=== PATIENT | female | born 1995 | race Caucasian/White ===

== ENCOUNTER 2020-07-14 09:52 | Outpatient (REF) | payer OTHER, SELFPAY ==
[2020-07-15 08:13] LABS: HBc Num1 0.19 S/CO (0.00-0.79); HIV AB/AG Nonreactive (Nonreactive); HIV Num 1 0.05 S/CO (0.00-0.99); Hepatitis B Core Antibody Nonreactive (Nonreactive)
[2020-07-15 08:38] LABS: ~HepC Num1 0.08 S/CO (0.00-0.79); ~Hepatitis C Antibody Nonreactive (Nonreactive)
[2020-07-15 09:05] LABS: Syphilis Screen Nonreactive (Nonreactive)
[2020-07-15 12:05] LABS: CT PCR NOT DETECTED (Not Detect.); NG PCR NOT DETECTED (Not Detect.)
== END 2020-07-14 09:53 | disposition home or self-care (01) ==
LOC: HO.LAB 09:52
PROVIDERS: PCP Internal Medicine; Visit Provider Advanced Practice Midwife
DX: Z01.419 Encounter for gynecological examination (general) (routine) without abnormal findings (principal); Z11.3 Encounter for screening for infections with a predominantly sexual mode of transmission; Z11.4 Encounter for screening for human immunodeficiency virus [HIV]; Z01.84 Encounter for antibody response examination; Z20.2 Contact with and (suspected) exposure to infections with a predominantly sexual mode of transmission
CPT/HCPCS: 36415; 86704; 86780; 86803; 87389; 87491; 87591; 88142

== ENCOUNTER 2020-07-29 20:32 | Emergency (ER) | payer OTHER, SELFPAY ==
[2020-07-29 21:11] VITALS: BP 135/82; PULSE 84; RESP 16; TEMP 36.9; O2SAT 100; BMI 23.0
--- NOTE | 2020-07-29 21:14 | ECG_ITS ---
Test Reason : CP Blood Pressure : / mmHG Vent. Rate : 077 BPM Atrial Rate : 077 BPM P-R Int : 200 ms QRS Dur : 086 ms QT Int : 352 ms P-R-T Axes : 044 082 057 degrees QTc Int : 398 ms Normal sinus rhythm with sinus arrhythmia Normal ECG No previous ECGs available Referred By: Generic ED Physician Electronically Signed By:Jarrett Greene
[2020-07-29 22:44] LABS: Appearance Urine HAZY; Color Urine YELLOW; Glucose Urine UA NEG (NEG); Leukocyte Esterase Urine TRACE (NEG); Nitrite Urine NEG (NEG); UACC Culture Trigger YES; Urine Blood 3+ (NEG); Urine Ketones NEG (NEG); Urine Protein NEG (NEG-TRACE)
[2020-07-29 22:52] LABS: RBC Urine 30-49 /HPF (0); Squamous Epithelial Cell Urine 1+ /LPF
[2020-07-29 22:53] LABS: Bacteria Urine 2+ /LPF
[2020-07-29 22:59] LABS: UPreg QC Valid YES; Urine Pregnancy NEGATIVE (NEGATIVE)
--- NOTE | 2020-07-29 23:52 | ED_ITS ---
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 at the left anterior chest, nonradiating at approximately 1:00 p.m. this afternoon. This was not associated with any headache, dizziness, diaphoresis, shortness of breath, but patient reports palpitations approximately 2 hours after the sensation resolved and patient states that her symptoms were associated with tremulousness and denies any history of anxiety. No recent history of long car rides or plane trips, hemoptysis, estrogen supplementation, personal history of cancer, recent surgery or bed bound state, calf pain or calf swelling. Related Data Previous Rx's Medication Instructions Recorded vitamin with calcium 1 tab PO DAILY #30 tab 07/14/20 no.72-iron 27 mg-folic acid 1 mg tablet Allergies Allergy/AdvReac Type Severity Reaction Status Date / Time diphenhydramine Allergy Severe Seizure Verified 07/14/20 10:01 [From Benadryl] activity Review of Systems Review of Systems: Pertinent positives and negatives as stated in HPI 10 point review of systems is otherwise negative. PMFSH Past Medical History Source: nursing notes reviewed Surgical History No pertinent past surgical history Family History Family History Father No problems noted. Mother Hypertension Maternal Grandmother Hypertension Diabetes Maternal Uncle Cancer Brother In good health Sister In good health Social History Social History Alcohol intake: never Advance Directives: No Sexual orientation: Straight/Heterosexual Gender identity: female Physical Exam Vital Signs: Vital Signs: Last Vital Signs Temp 98.5 F 07/29/20 21:11 Pulse 84 07/29/20 21:11 Resp 16 07/29/20 21:11 BP 135/82 07/29/20 21:11 Pulse Ox 100 07/29/20 21:11 Body Mass Index 23.0 VITAL SIGNS: Reviewed. GENERAL: Well developed, well nourished, in no acute distress. HEAD: Normocephalic/atraumatic EYES: PERRLA, EOMI OROPHARYNX: no oral lesions noted, posterior pharynx clear, moist mucosa NECK: Supple, no adenopathy LUNGS: Normal breath sounds. No adventitious sounds or accessory muscle use. SpO2<100> CARDIOVASCULAR: Regular rate and rhythm without noted murmurs ABDOMEN: Soft, non-tender, non-distended with bowel sounds, no CVA tenderness SKIN: Inspection of the skin reveals no rashes NEUROLOGIC: Alert and oriented x 4. Course Course Course Narrative: This is a 25-year-old female with history and clinical presentation suggestive of possible anxiety, muscle strain/costochondritis, acid reflux. No clinical suspicion for PE, pneumonia. Review of all investigations is significant for UTI. All results and findings were discussed with patient at bedside and she received initial antibiotics here in the emergency room. Low clinical suspicion for pyelonephritis and patient was discharged with remaining antibiotics. MDM - Chest Pain Lab Data Labs: Lab Results 07/29/20 07/29/20 Range/Units 22:40 22:52 Urine Color YELLOW Urine Appearance HAZY Urine pH 6.0 (5.0-8.0) Ur Specific [place] 1.020 (1.005-1.025) Urine Protein NEG (NEG-TRACE) MG/DL Urine Glucose (UA) NEG (NEG) MG/DL Urine Ketones NEG (NEG) MG/DL Urine Blood 3+ H (NEG) Urine Nitrite NEG (NEG) Ur Leukocyte Esterase TRACE H (NEG) Urine RBC 30-49 H (0) /HPF Urine WBC 5-9 H (0-4) /HPF Ur Squamous Epith Cells 1+ /LPF Urine Bacteria 2+ /LPF Urine Test NEGATIVE (NEGATIVE) ECG Data ECG #1: Attestation: I personally reviewed and interpreted this ECG as follows: Prior ECG tracings: not available for review Interpretation: Normal sinus rhythm, HR -77, no evidence of acute ischemia, TN/QRS/QTC are within normal limits. Discharge Plan Discharge Clinical Impression: Atypical chest pain, UTI (urinary tract infection) Patient Disposition: Home, Self-Care Instructions: Urinary Tract Infection in Women (ED) Additional Instructions: Return to the ER for any worsening of your symptoms. Prescriptions: No Action Vitamin Plus Low Iron 27 mg iron- 1 mg tablet 1 tab PO DAILY Qty: 30 RF: 11 Referrals: Chang Ceballos MD [Primary Care Provider] - 2 days Print Language: Croatian
[2020-07-30] VITALS: BP 120/78; PULSE 76; RESP 18; TEMP 36.8; O2SAT 99
[2020-07-30] MEDS: levoFLOXacin 500 MG TABLET PO (00:38)
== END 2020-07-30 01:30 | disposition home or self-care (01) ==
PROVIDERS: Emergency Provider Student in an Organized Health Care Education/Training Program; PCP Internal Medicine
DX: R07.89 Other chest pain (principal); N39.0 Urinary tract infection, site not specified
CPT/HCPCS: 81001; 81003; 81025; 87086; 93005; 99283; 99284

== ENCOUNTER 2020-08-10 18:08 | Outpatient (REF) | payer OTHER, SELFPAY | END 2020-08-10 18:09 | disposition home or self-care (01) | LOC: HO.LNP 18:08 | PROVIDERS: Visit Provider Internal Medicine | DX: R30.0 Dysuria (principal) | CPT/HCPCS: 87086 ==

== ENCOUNTER 2021-02-04 11:33 | Outpatient (REF) | payer OTHER, SELFPAY ==
[2021-02-04 11:46] LABS: MANUAL DIFF FLAG NO
[2021-02-04 11:56] LABS: Basophils Percent Auto 0.5 % (0-2); Eosinophils Absolute Auto 0.3 X10*3/uL (0.0-0.4); Eosinophils Percent Auto 3.7 % (0-4); Hematocrit 39.7 % (37.0-47.0); Hemoglobin 12.8 g/dl (12.0-16.0); Imm Gran Abs Auto 0.02 X10*3/uL (0.00-0.03); Imm Gran Pct Auto 0.2 % (0.0-0.4); Lymphocytes Absolute Auto 2.4 X10*3/uL (1.2-4.9); Lymphocytes Percent Auto 28.9 % (20-40); Mean Corpuscular HGB Conc 32.2 g/dl (31.0-35.0); Mean Corpuscular Hemoglobin 29.8 pg (27.0-33.0); Mean Corpuscular Volume 92.5 fL (80.0-98.0); Mean Platelet Volume 10.3 fL (9.4-12.3); Monocytes Absolute Auto 0.8 X10*3/uL (0.1-1.2); Monocytes Percent Auto 9.9 % (2-11); Neutrophils Absolute Auto 4.8 x10*3/uL (2.0-8.3); Neutrophils Percent Auto 56.8 % (45-73); Platelet Count 303 X10*3/uL (160-400); Red Blood Count 4.29 X10*6/uL (4.20-5.50); Red Cell Distribution Width 12.1 % (11.0-16.0); White Blood Count 8.4 X10*3/uL (4.8-10.8)
[2021-02-04 12:32] LABS: Alanine Aminotransferase 13 U/L (0-31); Albumin Level 4.6 g/dL (3.5-5.0); Alkaline Phosphatase 74 U/L (39-117); Anion Gap 12 (12-20); Aspartate Amino Transferase 16 U/L (5-31); Bilirubin Total 0.4 mg/dL (0.0-1.0); Blood Urea Nitrogen 16 mg/dL (9-16); C Reactive Protein 0.23 mg/dL (< or = 0.50); Calcium 10.2 mg/dL (8.4-10.2); Carbon Dioxide 26 mmol/L (22-29); Chloride 106 mmol/L (96-108); Cholesterol 166 mg/dL; Estimated Glomerular Filt Rate > 60; Glucose Random 90 mg/dL (60-115); Potassium 5.2 mmol/L (3.3-5.1); Sodium 139 mmol/L (135-145); Total Protein 7.5 g/dL (6.5-8.0)
[2021-02-04 12:44] LABS: Erythrocyte Sedimentation Rate 6 MM/HR (0-20)
[2021-02-04 12:53] LABS: TSH reflex Free T4 2.29 uIU/mL (0.32-4.0)
== END 2021-02-04 11:34 | disposition home or self-care (01) ==
LOC: HO.LAB 11:33
PROVIDERS: PCP Internal Medicine; Visit Provider Internal Medicine
DX: Z00.00 Encounter for general adult medical examination without abnormal findings (principal); R53.83 Other fatigue; R10.9 Unspecified abdominal pain
CPT/HCPCS: 36415; 80053; 82465; 84443; 85025; 85652; 86140

== ENCOUNTER 2022-07-26 08:24 | Outpatient (REF) | payer OTHER, SELFPAY ==
[2022-07-26 09:28] LABS: MANUAL DIFF FLAG NO
[2022-07-26 10:01] LABS: Basophils Absolute Auto 0.1 X10*3/uL (0.0-0.2); Basophils Percent Auto 0.8 % (0-2); Eosinophils Absolute Auto 0.3 X10*3/uL (0.0-0.4); Eosinophils Percent Auto 4.1 % (0-4); Hematocrit 41.1 % (37.0-47.0); Hemoglobin 13.4 g/dl (12.0-16.0); Imm Gran Abs Auto 0.02 X10*3/uL (0.00-0.03); Imm Gran Pct Auto 0.3 % (0.0-0.4); Lymphocytes Absolute Auto 2.3 X10*3/uL (1.2-4.9); Lymphocytes Percent Auto 29.2 % (20-40); Mean Corpuscular HGB Conc 32.6 g/dl (31.0-35.0); Mean Corpuscular Volume 92.2 fL (80.0-98.0); Mean Platelet Volume 10.9 fL (9.4-12.3); Monocytes Absolute Auto 0.9 X10*3/uL (0.1-1.2); Monocytes Percent Auto 10.9 % (2-11); Neutrophils Absolute Auto 4.3 x10*3/uL (2.0-8.3); Neutrophils Percent Auto 54.7 % (45-73); Platelet Count 236 X10*3/uL (160-400); Red Blood Count 4.46 X10*6/uL (4.20-5.50); Red Cell Distribution Width 12.2 % (11.0-16.0); White Blood Count 7.9 X10*3/uL (4.8-10.8)
[2022-07-26 10:23] LABS: Appearance Urine Clear; Color Urine Yellow; Glucose Urine UA Negative (Negative); Leukocyte Esterase Urine Negative (Negative); Nitrite Urine Negative (Negative); PH 6.5 (5.0-9.0); Specific Gravity - Urine >= 1.030 (1.005-1.025); Urine Blood Negative (Negative); Urine Ketones Negative (Negative); Urine Protein Negative (Neg-Trace)
[2022-07-26 10:38] LABS: Alanine Aminotransferase 22 U/L (0-31); Albumin Level 4.8 g/dL (3.5-5.0); Alkaline Phosphatase 68 U/L (39-117); Anion Gap 13 (12-20); Aspartate Amino Transferase 21 U/L (5-31); Bilirubin Total 0.7 mg/dL (0.0-1.0); Blood Urea Nitrogen 15 mg/dL (9-16); Carbon Dioxide 22 mmol/L (22-29); Chloride 109 mmol/L (96-108); Cholesterol 171 mg/dL; Estimated Glomerular Filt Rate > 60; Glucose Random 84 mg/dL (60-115); Potassium 4.6 mmol/L (3.3-5.1); Sodium 139 mmol/L (135-145); Total Protein 7.7 g/dL (6.5-8.0)
[2022-07-26 10:52] LABS: TSH reflex Free T4 5.07 uIU/mL (0.32-4.0); Vitamin D 25-OH Total 30.8 ng/mL (>30)
[2022-07-26 11:25] LABS: Free T4 (Free Thyroxine) 0.89 ng/dL (0.71-1.85)
[2022-07-26 15:25] LABS: CT PCR NOT DETECTED (Not Detect.); NG PCR NOT DETECTED (Not Detect.)
[2022-07-27 12:36] LABS: BV Int Neg Control Negative (Negative); BV Int Pos Control Positive (Positive)
== END 2022-07-26 08:25 | disposition home or self-care (01) ==
LOC: HO.LAB 08:24
PROVIDERS: Absent Provider Internal Medicine; PCP Internal Medicine; Visit Provider Advanced Practice Midwife
DX: Z01.419 Encounter for gynecological examination (general) (routine) without abnormal findings (principal); E55.9 Vitamin D deficiency, unspecified; R10.2 Pelvic and perineal pain; N94.10 Unspecified dyspareunia; Z20.2 Contact with and (suspected) exposure to infections with a predominantly sexual mode of transmission
CPT/HCPCS: 0353U; 36415; 80053; 81003; 82306; 82465; 84439; 84443; 85025; 87480; 87510; 87660

== ENCOUNTER 2022-07-26 08:55 | Outpatient (REF) | payer OTHER, SELFPAY | END 2022-07-26 08:56 | disposition home or self-care (01) | LOC: HO.LNP 08:55 | PROVIDERS: Visit Provider Advanced Practice Midwife | DX: Z13.89 Encounter for screening for other disorder (principal) ==

== ENCOUNTER 2022-08-08 14:18 | Outpatient (REF) | payer OTHER, SELFPAY ==
--- NOTE | ~2022-08-08 | US_ITS ---
EXAM: Pelvic Ultrasound CLINICAL INDICATION: Pelvic and perineal pain. COMPARISON: Pelvic ultrasound 12/12/2017 TECHNIQUE: The pelvis was evaluated using transabdominal and transvaginal imaging. FINDINGS: The uterus measures 7.1 x 3.2 x 4.7 cm in longitudinal by AP by transverse dimension. The endometrial stripe is not thickened and measures 0.6 cm. The left ovary measures approximately 2.6 x 1.7 x 2.0 cm and is normal. The right ovary measures approximately 2.5 x 2.0 x 1.8 cm and is also normal. There are no abnormal adnexal masses. There is a small amount of free fluid adjacent to the right ovary, nonspecific. US/US pelvic and transvaginal IMPRESSION: Unremarkable sonographic imaging of the pelvis.
== END 2022-08-08 14:19 | disposition home or self-care (01) ==
LOC: HO.US 14:18
PROVIDERS: PCP Internal Medicine; Visit Provider Advanced Practice Midwife
DX: R10.2 Pelvic and perineal pain (principal)
CPT/HCPCS: 76830; 76856

== ENCOUNTER 2023-01-06 10:43 | Outpatient (AMB) | payer OTHER, SELFPAY ==
--- NOTE | 2023-01-06 10:55 | A.OFFVIS_ITS ---
Intake Vital Signs 01/06/23 10:59 Height 5 ft 3 in Weight 135 lb BMI 23.9 BP 110/62 Intake Visit Reasons: Breast mass Intake Note: Patient refused test. Allergies diphenhydramine [From Benadryl] Allergy (Severe, Verified 01/06/23 10:57) Seizure activity Medication List - Last Reconciled 01/06/23 by Ally Rubio CNM No Known Home Meds Is last menstrual period known: Yes Last menstrual period: 12/22/22 HPI Breast mass HPI Details Patient is here because she has breast pain in her left breast for 3 weeks. She said she was trying to get in October but then broke up with her boyfriend.\ She pointed to the area in her left breast were she feels the pain at 01:00 o'clock and the mass but this provider was not able to feel any mass there. She says her last period was December 22 but it was shorter than usual and the. Bef ore that was heavier than usual. She has done multiple tests at home and they were negative so she did not want to do any here. COUNTS INCLUDE 234 BEDS AT THE [facility] Medical History Abdominal pain Dysuria Fatigue Surgical History No pertinent past surgical history Family History Father No problems noted. Mother Hypertension Maternal Grandmother Hypertension Diabetes Maternal Uncle Cancer Brother In good health Sister In good health Social History Housing: Apartment Alcohol intake: never Patient Tobacco Use Status: Never used Tobacco e-Cigarette/Vaping Use: Never Used Second Hand Smoke Exposure: No service: No Current occupational status: unemployed Sexual orientation: Straight/Heterosexual Gender identity: Female Cognitive needs: No Hearing needs: No Vision needs: Yes Female Reproductive History Menstrual Duration of menses: <3 days Date of last menstrual period: 12/22/22 control method: none Physical Exam Vital Signs: Last Vital Signs BP 110/62 01/06/23 10:59 BMI result Body Mass Index 23.9 Chest Other: Normal breast exam both breasts I do not feel any mass where the patient states she feels something at 01:00 o'clock in the left breast. Assessment & Plan Assessment & Plan (1) Breast mass, left: Comment: Patient feels it and says it is painful for 3 weeks I cannot feel it. Code(s): N63.20 - Unspecified lump in the left breast, unspecified quadrant Plan Patient is here because she has breast pain in her left breast for 3 weeks. She said she was trying to get in October but then broke up with her boyfriend.\ She pointed to the area in her left breast were she feels the pain at 01:00 o'clock and the mass but this provider was not able to feel any mass there. She says her last period was December 22 but it was shorter than usual and the. Before that was heavier than usual. She has done multiple tests at home and they were negative so she did not want to do any here. Ordered a breast ultrasound of that breast and a mammogram if the radiologist feels that mammogram is not necessary because there are no findings on the ultrasound that would be fine and they can cancel it. If there is anything found we will for refer her to breast surgery. Orders: Orders MM tomosynthesis diagnostic LT Today N63.20 - Unspecified lump in the left breast, unspecified quadrant US breast LT complete Today N63.20 - Unspecified lump in the left breast, unspecified quadrant Coding Level of Care Code Est Pt Level 3 (49966) Diagnoses Breast mass, left N63.20
[2023-01-06 10:59] VITALS: BP 110/62; BMI 23.9
== END 2023-01-06 11:36 | disposition home or self-care (01) ==
LOC: HO.HWS 10:43
PROVIDERS: PCP Internal Medicine; Visit Provider Advanced Practice Midwife
DX: N63.20 Unspecified lump in the left breast, unspecified quadrant (principal)
CPT/HCPCS: 99213

== ENCOUNTER → 2023-01-06 10:43 | Outpatient (BNVA) | payer OTHER, SELFPAY | PROVIDERS: PCP Internal Medicine; Visit Provider Advanced Practice Midwife | DX: N63.22 Unspecified lump in the left breast, upper inner quadrant (principal) | CPT/HCPCS: 99212 ==

== ENCOUNTER 2023-02-15 10:31 | Outpatient (AMB) | payer OTHER, SELFPAY ==
[2023-02-15 10:32] VITALS: BP 110/80; PULSE 91; O2SAT 99; BMI 23.6
--- NOTE | 2023-02-15 10:32 | A.OFFPC_ITS ---
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 Accompanied by: Self / Same As Patient Allergies diphenhydramine [From Benadryl] Allergy (Severe, Verified 02/15/23 11:53) Seizure activity Medication List - Last Reconciled 02/15/23 by Chang Ceballos MD No Known Home Meds Tobacco use date assessed: 02/15/23 Dental Screening Dental Screen Date: 02/15/23 Did you have a dental visit in the last 12 months?: No Did you have a dental problem in the last 6 months where you did not have access to dental care?: No Was dental information given to patient?: No HPI elevated TSH, fatigue HPI Details Patient comes in today for her follow up visit Currently has multiple complaints / issues that she would like to have addressed States that for the past couple of months, she feels bloated over her lower abdomen at times but reports experiencing a constant lower abdominal pain for the past 2 months States that her bowel movements have been regular lately with no problems and that her menstrual periods have also been normal but notes (+) pain during sexual intercourse for the past few weeks She had a pelvic US done a few months ago in July 2022 that came out normal Relates that she has been trying to get unsuccessfully for the past 5 years She denies any fever, headaches or dizziness Denies any chest pains, no shortness of breath Has had no nausea/vomiting associated with her recent abdominal pains PFSH Medical History Abdominal pain Dysuria Fatigue Surgical History No pertinent past surgical history Family History Father No problems noted. Mother Hypertension Maternal Grandmother Hypertension Diabetes Maternal Uncle Cancer Brother In good health Sister In good health Social History Housing: Apartment Alcohol intake: never Patient Tobacco Use Status: Never used Tobacco e-Cigarette/Vaping Use: Never Used Second Hand Smoke Exposure: No service: No Current occupational status: unemployed Sexual orientation: Straight/Heterosexual Gender identity: Female Cognitive needs: No Hearing needs: No Vision needs: Yes Questionnaire PHQ-9 Over the last 2 weeks, how often have you been bothered by any of the following problems? 1. Little interest or pleasure in doing things: not at all 2. Feeling down, depressed, or hopeless: not at all 3. Trouble falling or staying asleep, or sleeping too much: not at all 4. Feeling tired or having little energy: not at all 5. Poor appetite or overeating: not at all 6. Feeling bad about yourself - or that you are a failure or have let yourself or your family down: not at all 7. Trouble concentrating on things, such as reading the newspaper or watching television: not at all 8. Moving or speaking so slowly that other people could have noticed. Or the opposite - being so fidgety or restless that you have been moving around a lot more than usual: not at all 9. Thoughts that you would be better off or of hurting yourself in some way: not at all Total score: 0 Depression Screening Interpretation: Negative Depression Screening Done: Yes [id number] - PHQ-9 Billing: Yes Source: Developed by Drs. Song Herman, Judy Blake, Yefri Chi and colleagues, with an educational hao from [employer]. Thrive Questionnaire Date Thrive assessed: 02/15/23 I am a: Patient What is your living situation today?: I have a steady place to live Within the past 12 months, did the food you bought not last and you didn't have the money to get more?: Never true Within the past 12 months, did you worry whether your food would run out before you got money to buy more?: Never true Do you have trouble paying for medicines?: No Do you have trouble getting transportation to medical appointments?: No Do you have trouble paying your heating and electricity bill?: No Do you have trouble taking care of your child, family member or friend?: No Do you have trouble with day-to-day activities such as bathing, preparing meals, shopping, managing finances, etc.?: No Are you currently unemployed and looking for a job?: No Are you interested in more education?: No Please select the resources that you would like help with: None Currently or been in a relationship where the following occur: no concerns reported AUDIT C Alcohol Use Questionnaire (AUDIT-C) 1. How often do you have a drink containing alcohol?: Never 3. How often do you have six or more drinks on one occasion?: Never Total Score: 0 Score Reviewed/Action Taken: Yes RITIKA-7 AMB Questionnaire RITIKA-7 Date RITIKA - 7 assessed: 02/15/23 Feeling nervous, anxious, or on edge: 0 = Not at all Not being able to stop or control worryin = Not at all Worrying too much about different things: 0 = Not at all Trouble relaxin = Not at all Being so restless that it is hard to sit still: 0 = Not at all Becoming easily annoyed or irritable: 0 = Not at all Feeling afraid as if something awful might happen: 0 = Not at all Total RITIKA-7 score (0-4 normal; 5-9 mild; 10-14 moderate; 15-21 severe): 0 Source: Developed by Drs. Song Herman, Judy Blake, Yefri Chi and colleagues, with an educational hao from [employer]. Review of Systems Const Denies chills, Reports fatigue, Denies fever(s) and Denies headache(s) ENT Denies dysphagia, Denies dizziness, Denies otalgia, Denies headache(s), Denies neck pain, Denies odynophagia and Denies sore throat Card Denies chest pain, Denies palpitations and Denies dyspnea Resp Denies cough and Denies dyspnea GI Reports abdominal pain (over the lower abdomen), Reports bloating, Denies constipation, Denies dysphagia, Denies heartburn, Denies diarrhea, Denies nausea, Denies odynophagia and Denies vomiting Denies abnormal menses, Reports difficulty conceiving, Denies difficulty voiding, Denies nocturia, Reports dyspareunia, Denies dysuria, Denies urinary ur gency and Denies vaginal discharge Musc Denies back pain and Denies neck pain Neuro Denies dizziness and Denies headache(s) Endo Reports fatigue and Denies palpitations Physical exam (Primary Care) Vital Signs: Last Vital Signs Pulse 91 02/15/23 10:32 BP 110/80 02/15/23 10:32 Pulse Ox 99 02/15/23 10:32 Oxygen Delivery Method Room Air 02/15/23 10:32 BMI result Body Mass Index 23.6 Tobacco/Smoking Status: Tobacco use Status Tobacco use date assessed 02/15/23 02/15/23 10:33 Patient Tobacco Use Status Never used Tobacco 02/15/23 10:33 e-Cigarette/Vaping Use Never Used 02/15/23 10:33 PHQ-9: PHQ-9 Score PHQ-9: Total score 0 02/15/23 11:54 Depression Screening Interpretation: Negative Thrive Assessment: Date of Thrive Assessment Date Thrive assessed 02/15/23 02/15/23 10:33 Currently or been in a relationship where the following occur: no concerns reported Const General: no acute distress and alert HENMT Ears: TM's normal bilaterally and EAC's normal Throat: Yes posterior oropharynx normal and Yes tonsils normal (no TP congestion) Neck Neck: Yes no lymphadenopathy and Yes supple Resp Auscultation: clear to auscultation bilaterally, no rales and no wheezes Cardio Rate: regular rate Rhythm: regular rhythm Heart sounds: no murmurs GI Palpation (GI): Soft to palpation, Tenderness to palpation present (GI) suprapubicly (and over the bilateral inguinal areas), No hepatosplenomegaly present and no masses Auscultation: normal bowel sounds General: Yes no CVA tenderness Back/Spine/Pelvis Back: no CVA tenderness Thoracic/Lumbar Spine: No lumbar spinal tenderness Skin Rashes: no rashes Extrem General: Yes no clubbing, cyanosis or edema Assessment and Plan Assessment & Plan (1) Chronic pelvic pain in female: Code(s): R10.2 - Pelvic and perineal pain; G89.29 - Other chronic pain Plan: Will send patient for some labs CARMEN for further evaluation Will also send her for abdominal and pelvic CT for further evaluation (2) Elevated TSH: Code(s): R79.89 - Other specified abnormal findings of blood chemistry Plan: Will recheck her TFTs for follow up Plan Follow up in 2 months Orders: Orders Complete Blood Count Auto Diff 02/15/23 G89.29 - Other chronic pain, R10.2 - Pelvic and perineal pain Comprehensive Met. Panel 02/15/23 G. - Other chronic pain, R10.2 - Pelvic and perineal pain Free T4 (Free Thyroxine) 02/15/23 R79.89 - Other specified abnormal findings of blood chemistry CT abdomen pelvis wo IV con 02/15/23. - Other chronic pain, N94.10 - Unsp ecified dyspareunia, R10.2 - Pelvic and perineal pain Erythrocyte Sedimentation Rate 02/15/23. - Other chronic pain, R10.2 - Pelvic and perineal pain UA CC w/rflx Micro + Cult 02/15/23. - Other chronic pain, R10.2 - Pelvic and perineal pain, R30.0 - Dysuria Thyroid Stimulating Hormone 02/15/23 R79.89 - Other specified abnormal findings of blood chemistry CT NG by PCR 02/15/23. - Other chronic pain, R10.2 - Pelvic and perineal pain Coding Level of Care Code Est Pt Level 4 (01208) Diagnoses Chronic pelvic pain in female R10.2; . Elevated TSH R79.89
== END 2023-02-15 12:01 | disposition home or self-care (01) ==
PROVIDERS: PCP Internal Medicine; Visit Provider Internal Medicine
DX: R10.2 Pelvic and perineal pain (principal); G89.29 Other chronic pain; R79.89 Other specified abnormal findings of blood chemistry
CPT/HCPCS: 99214

== ENCOUNTER 2023-05-15 08:23 | Outpatient (REF) | payer OTHER, SELFPAY ==
--- NOTE | ~2023-05-15 | CT_ITS ---
EXAMINATION: CT ABDOMEN AND PELVIS WITH CONTRAST CLINICAL INFORMATION: Pelvic and perineal pain COMPARISON: Pelvic ultrasound 08/08/2022 and abdominal ultrasound 06/02/2016 TECHNIQUE: Multidetector volumetric images were obtained from the superior aspect of the liver through the pubic symphysis following administration 85 mL of Omnipaque 350 intravenous contrast. Sagittal and coronal reformatted images were obtained on the technologist's workstation. This CT examination was performed using dose optimization techniques as appropriate, variously including the following: *Automated exposure control *Adjustment of mA and/or kV according to patient size (this includes techniques or standardized protocols for targeted exams where dose is matched to indication/reason for exam; i.e. extremities or head) *Use of iterative reconstruction technique DLP: 334 mGy-cm FINDINGS: Visualized lung bases are well aerated. The liver is normal in size. There are a few small hypodense lesions within the liver which are too small to accurately characterize but statistically cysts. The gallbladder is normal in appearance. The pancreas, spleen and adrenal glands are unremarkable. Symmetrically enhancing kidneys. No hydronephrosis of either kidney. The stomach is relatively decompressed. Normal caliber loops of small and large bowel. Normal appendix. Normal caliber abdominal aorta. No retroperitoneal lymphadenopathy. The bladder is normal in appearance. Unremarkable CT appearance of the uterus. Small amount of free pelvic fluid, often times physiologic in a female of this age. No acute osseous abnormality. CT/CT abdomen pelvis w IV con IMPRESSION: No CT evidence for acute abnormality within the abdomen or pelvis. Fleischner guidelines were followed.
[2023-05-15] MEDS: iohexoL 350 MG/ML 100 ML INFUS..BTL 85 ML IV (10:37)
== END 2023-05-15 08:24 | disposition home or self-care (01) ==
LOC: HO.CT 08:23
PROVIDERS: PCP Internal Medicine; Visit Provider Internal Medicine
DX: R10.2 Pelvic and perineal pain (principal); G89.29 Other chronic pain; N94.10 Unspecified dyspareunia
CPT/HCPCS: 74177; Q9967

== ENCOUNTER 2023-05-24 15:38 | Outpatient (REF) | payer OTHER, SELFPAY ==
[2023-05-24 15:54] LABS: MANUAL DIFF FLAG NO
[2023-05-24 16:15] LABS: Appearance Urine Clear; Color Urine Yellow; Glucose Urine UA Negative (Negative); Leukocyte Esterase Urine Negative (Negative); Nitrite Urine Negative (Negative); Urine Blood Negative (Negative); Urine Ketones Negative (Negative); Urine Protein Negative (Neg-Trace)
[2023-05-24 16:17] LABS: Basophils Absolute Auto 0.1 X10*3/uL (0.0-0.2); Basophils Percent Auto 0.5 % (0-2); Eosinophils Absolute Auto 0.4 X10*3/uL (0.0-0.4); Eosinophils Percent Auto 3.5 % (0-4); Hematocrit 37.4 % (37.0-47.0); Hemoglobin 12.5 g/dl (12.0-16.0); Imm Gran Abs Auto 0.03 X10*3/uL (0.00-0.03); Imm Gran Pct Auto 0.3 % (0.0-0.4); Lymphocytes Absolute Auto 1.9 X10*3/uL (1.2-4.9); Lymphocytes Percent Auto 18.3 % (20-40); Mean Corpuscular HGB Conc 33.4 g/dl (31.0-35.0); Mean Corpuscular Hemoglobin 30.1 pg (27.0-33.0); Mean Corpuscular Volume 90.1 fL (80.0-98.0); Mean Platelet Volume 10.4 fL (9.4-12.3); Monocytes Absolute Auto 1.4 X10*3/uL (0.1-1.2); Monocytes Percent Auto 13.2 % (2-11); Neutrophils Absolute Auto 6.5 x10*3/uL (2.0-8.3); Neutrophils Percent Auto 64.2 % (45-73); Platelet Count 274 X10*3/uL (160-400); Red Blood Count 4.15 X10*6/uL (4.20-5.50); Red Cell Distribution Width 12.4 % (11.0-16.0); White Blood Count 10.2 X10*3/uL (4.8-10.8)
[2023-05-24 16:43] LABS: Alanine Aminotransferase 13 U/L (0-31); Albumin Level 4.5 g/dL (3.5-5.0); Alkaline Phosphatase 84 U/L (39-117); Anion Gap 11 (12-20); Aspartate Amino Transferase 16 U/L (5-31); Bilirubin Total 0.3 mg/dL (0.0-1.0); Blood Urea Nitrogen 16 mg/dL (9-16); Calcium 9.5 mg/dL (8.4-10.2); Carbon Dioxide 27 mmol/L (22-29); Chloride 105 mmol/L (96-108); Estimated Glomerular Filt Rate > 60; Glucose Random 74 mg/dL (60-115); Potassium 4.5 mmol/L (3.3-5.1); Sodium 138 mmol/L (135-145); Total Protein 7.5 g/dL (6.5-8.0)
[2023-05-24 16:57] LABS: Erythrocyte Sedimentation Rate 8 MM/HR (0-20)
[2023-05-24 16:59] LABS: Free T4 (Free Thyroxine) 0.72 ng/dL (0.71-1.85); HCG Quantitative 11882 mIU/mL; Thyroid Stimulating Hormone 2.58 uIU/mL (0.32-4.0)
== END 2023-05-24 15:39 | disposition home or self-care (01) ==
LOC: HO.LAB 15:38
PROVIDERS: Visit Provider Internal Medicine
DX: O26.899 Other specified pregnancy related conditions, unspecified trimester (principal); R30.0 Dysuria; R10.2 Pelvic and perineal pain; G89.29 Other chronic pain; R79.89 Other specified abnormal findings of blood chemistry
CPT/HCPCS: 36415; 80053; 81003; 84439; 84443; 84702; 85025; 85652

== ENCOUNTER 2023-05-29 11:03 | Outpatient (AMB) | payer OTHER, SELFPAY ==
--- NOTE | 2023-05-29 11:06 | MHC.PC.OV ---
Vital Signs 05/29/23 11:08 Height 5 ft 3 in Weight 131 lb 6 oz BMI 23.3 BP 110/64 Blood Pressure Location Lt brachial Position Sitting Pulse 60 Pulse Source Pulse Oximeter Pulse Oximetry (%) 98 Oxygen Delivery Method Room Air Intake Visit Reasons: 2 month f/u Intake Note: Patient is here to follow up on lab results. Breakdown Person Required: Yes Breakdown Person Language: Medical Customer Service Representative Name: Yana ([id number]) Information Interpreted: non-clinical & clinical Gate Person: Present Accompanied by: Spouse Allergies diphenhydramine [From Benadryl] Allergy (Severe, Verified 05/29/23 11:29) Seizure activity Medication List - Last Reconciled 05/29/23 by Chang Ceballos MD No Known Home Meds Tobacco use date assessed: 05/29/23 Dental Screening Dental Screen Date: 05/29/23 Did you have a dental visit in the last 12 months?: Yes Did you have a dental problem in the last 6 months where you did not have access to dental care?: No Was dental information given to patient?: Patient has dentist HPI 2 month f/u HPI Details Patient comes in today for her follow up visit States that she has been experiencing increased/recurrent nausea (but no vomiting) as well as diffuse abdominal bloating and discomfort for the past couple of weeks Notes that her symptoms are especially worse in the morning She had an abdominal and pelvic CT that was previously ordered in January 2023 done a couple of weeks ago on 05/15/2023 but noted a week later that she was late with her period and decided to do a home test, which reportedly came back positive and she then called up for a lab order for serum HCG for confirmation She is in today to discuss the results of her labs done a few days ago as well She denies any diarrhea or constipation lately Denies any fever, headaches or dizziness although she has been feeling somewhat fatigued lately Denies any chest pains, no SOB PFSH Medical History Abdominal pain Dysuria Fatigue Surgical History No pertinent past surgical history Family History Father No problems noted. Mother Hypertension Maternal Grandmother Hypertension Diabetes Maternal Uncle Cancer Brother In good health Sister In good health Social History Housing: Apartment Alcohol intake: never Patient Tobacco Use Status: Never used Tobacco e-Cigarette/Vaping Use: Never Used Second Hand Smoke Exposure: No service: No Current occupational status: unemployed Sexual orientation: Straight/Heterosexual Gender identity: Female Cognitive needs: No Hearing needs: No Vision needs: Yes Questionnaire PHQ-9 Over the last 2 weeks, how often have you been bothered by any of the following problems? 1. Little interest or pleasure in doing things: not at all 2. Feeling down, depressed, or hopeless: not at all 3. Trouble falling or staying asleep, or sleeping too much: not at all 4. Feeling tired or having little energy: not at all 5. Poor appetite or overeating: not at all 6. Feeling bad about yourself - or that you are a failure or have let yourself or your family down: not at all 7. Trouble concentrating on things, such as reading the newspaper or watching television: not at all 8. Moving or speaking so slowly that other people could have noticed. Or the opposite - being so fidgety or restless that you have been moving around a lot more than usual: not at all 9. Thoughts that you would be better off or of hurting yourself in some way: not at all Total score: 0 Depression Screening Interpretation: Negative Depression Screening Done: Yes 34313 - PHQ-9 Billing: Yes Source: Developed by Drs. Song Herman, Judy Blake, Yefri Chi and colleagues, with an educational hao from [employer]. Thrive Questionnaire Date Thrive assessed: 05/29/23 I am a: Patient What is your living situation today?: I have a steady place to live Within the past 12 months, did the food you bought not last and you didn't have the money to get more?: Never true Within the past 12 months, did you worry whether your food would run out before you got money to buy more?: Never true Do you have trouble paying for medicines?: No Do you have trouble getting transportation to medical appointments?: No Do you have trouble paying your heating and electricity bill?: No Do you have trouble taking care of your child, family member or friend?: No Do you have trouble with day-to-day activities such as bathing, preparing meals, shopping, managing finances, etc.?: No Are you currently unemployed and looking for a job?: No Are you interested in more education?: No Currently or been in a relationship where the following occur: no concerns reported THRIVE Score: 0 AUDIT C Alcohol Use Questionnaire (AUDIT-C) 1. How often do you have a drink containing alcohol?: Never Total Score: 0 Score Reviewed/Action Taken: Yes RITIKA-7 AMB Questionnaire RITIKA-7 Date RITIKA - 7 assessed: 05/29/23 Feeling nervous, anxious, or on edge: 0 = Not at all Not being able to stop or control worryin = Not at all Worrying too much about different things: 0 = Not at all Trouble relaxin = Not at all Being so restless that it is hard to sit still: 0 = Not at all Becoming easily annoyed or irritable: 0 = Not at all Feeling afraid as if something awful might happen: 0 = Not at all Total RITIKA-7 score (0-4 normal; 5-9 mild; 10-14 moderate; 15-21 severe): 0 Source: Developed by Drs. Song Herman, Judy Blake, Yefri Chi and colleagues, with an educational hao from [employer]. Review of Systems Const Denies chills, Reports fatigue, Denies fever(s) and Denies headache(s) ENT Denies dysphagia, Denies dizziness, Denies otalgia, Denies headache(s), Denies neck pain, Denies odynophagia and Denies sore throat Card Denies chest pain, Denies palpitations and Denies dyspnea Resp Denies cough and Denies dyspnea GI Reports abdominal pain (on and off, especially over epigastric area), Reports bloating, Denies constipation, Denies dysphagia, Denies heartburn, Denies diarrhea, Reports nausea (frequent), Denies odynophagia and Denies vomiting Denies abnormal menses, Denies difficulty voiding, Denies nocturia, Reports dyspareunia, Denies dysuria, Denies urinary urgency and Denies vaginal discharge Musc Denies back pain and Denies neck pain Skin/Breast Denies rash Neuro Denies dizziness and Denies headache(s) Endo Reports fatigue and Denies palpitations Physical exam (Primary Care) Vital Signs: Last Vital Signs Pulse 60 05/29/23 11:08 BP 110/64 05/29/23 11:08 Pulse Ox 98 05/29/23 11:08 Oxygen Delivery Method Room Air 05/29/23 11:08 BMI result Body Mass Index 23.3 Tobacco/Smoking Status: Tobacco use Status Tobacco use date assessed 05/29/23 05/29/23 11:11 Patient Tobacco Use Status Never used Tobacco 05/29/23 11:11 e-Cigarette/Vaping Use Never Used 05/29/23 11:11 PHQ-9: PHQ-9 Score PHQ-9: Total score 0 05/29/23 11:11 Depression Screening Interpretation: Negative Thrive Assessment: Date of Thrive Assessment Date Thrive assessed 05/29/23 05/29/23 11:11 Currently or been in a relationship where the following occur: no concerns reported Const General: no acute distress and alert HENMT Throat: Yes posterior oropharynx normal and Yes tonsils normal (no TP congestion) Neck Neck: Yes no lymphadenopathy and Yes supple Thyroid: Thyroid normal Resp Auscultation: clear to auscultation bilaterally, no rales and no wheezes Cardio Rate: regular rate Rhythm: regular rhythm Heart sounds: no murmurs GI Palpation (GI): Soft to palpation, Tenderness to palpation present (GI) in the epigastrum (mild) and suprapubicly (and over the bilateral inguinal areas), no guarding and no masses Auscultation: normal bowel sounds General: Yes no CVA tenderness Back/Spine/Pelvis Back: no CVA tenderness Skin Rashes: no rashes Extrem General: Yes no clubbing, cyanosis or edema Results Reviewed Results Reviewed: Laboratory Tests 05/24/23 05/24/23 05/24/23 15:44 15:44 15:49 WBC 10.2 Hgb 12.5 Hct 37.4 Plt Count 274 Sodium 138 Potassium 4.5 Creatinine 0.90 Estimated GFR > 60 Random Glucose 74 Calcium 9.5 AST 16 ALT 13 TSH 2.58 Free T4 0.72 Beta HCG, Quant Ur Specific [place] 1.010 Urine Protein Negative Urine Glucose (UA) Negative Urine Blood Negative Urine Nitrite Negative Ur Leukocyte Esterase Negative 05/24/23 15:49 WBC Hgb Hct Plt Count Sodium Potassium Creatinine Estimated GFR Random Glucose Calcium AST ALT TSH Free T4 Beta HCG, Quant 17987 Ur Specific [place] Urine Protein Urine Glucose (UA) Urine Blood Urine Nitrite Ur Leukocyte Esterase Assessment and Plan Assessment & Plan (1) Elevated serum hCG: Code(s): R79.89 - Other specified abnormal findings of blood chemistry Plan: Results of her labs done a few days ago reviewed and discussed with patient Have advised her that her serum HCG came back positive and based on her values, she would theoretically be about 5 to 6 weeks into her first trimester IF she is indeed - patient called up to request for this test last week when a home test that she did came out positive She is scheduled for ultrasound on 06/08/2023 to help confirm her current findings and discussed that we should have a better idea of whether she is or not by then (2) Nausea and vomiting: Code(s): R11.2 - Nausea with vomiting, unspecified Qualifiers: Vomiting type: unspecified Qualified Code(s): R11.2 - Nausea with vomiting, unspecified Plan: Discussed that her current symptoms may be due to hyperemesis which is not uncommon in the early stages of For now, will start her on Ondansetron 4 mg Q 8 hours PRN for symptomatic relief (3) Chronic pelvic pain in female: Code(s): R10.2 - Pelvic and perineal pain; G89.29 - Other chronic pain Plan: Have discussed with patient that her abdominal and pelvic CT done a couple of weeks ago came out negative and that there were NO findings that could help explain her frequent abdominal and pelvic symptoms Patient has voiced her concerns that the scan would affect her baby if she is - have discussed that there is that possibility but her CT was ordered way back in January 2023 and that there would have been no way for us to foretell how things are going to play out or we would have cancelled the CT if we had know beforehand that she was Have advised her to get her US done as scheduled on 06/08/2023 and depending on how her results are, we will go from there She is also advised to make sure she follows up with [facility] as scheduled Plan To return as scheduled in July 2023 for her annual physical examination Medications: New ondansetron 4 mg PO Q8H 15 days PRN 45 tabs 1RF nausea and vomiting Coding Level of Care Code Est Pt Level 4 (53640) Diagnoses Elevated serum hCG R79.89 Nausea and vomiting, unspecified vomiting type R11.2 Vomiting type: unspecified Chronic pelvic pain in female R10.2; G89.29
[2023-05-29 11:08] VITALS: BP 110/64; PULSE 60; O2SAT 98; BMI 23.3
== END 2023-05-29 11:45 | disposition home or self-care (01) ==
PROVIDERS: PCP Internal Medicine; Visit Provider Internal Medicine
DX: R79.89 Other specified abnormal findings of blood chemistry (principal); R11.2 Nausea with vomiting, unspecified; R10.2 Pelvic and perineal pain; G89.29 Other chronic pain
CPT/HCPCS: 99214

== ENCOUNTER 2023-06-08 11:00 | Outpatient (REF) | payer OTHER, SELFPAY ==
--- NOTE | ~2023-06-08 | US_ITS ---
EXAMINATION: US OBSTETRICAL ULTRASOUND CLINICAL INFORMATION: , size and dates. COMPARISON: None available. LMP: 04/16/2023. Gestational age by maternal dates is 7 weeks, 4 days. Estimated date of delivery by maternal dates is 01/21/2020. TECHNIQUE: Only transabdominal scanning was performed. FINDINGS: There is a single intrauterine gestational sac with visible yolk sac, embryo/fetus, and cardiac activity. There is no significant subchorionic hemorrhage or hematoma. HR: 139 beats per minute. CRL (crown rump length): 1.03 cm (7 weeks, 1 day +/- 4 days). ANUSHA (estimated date of delivery): 01/24/2024 +/- 4 days. MATERNAL ADNEXA: The right maternal ovary measures 4.1 x 1.8 x 2.3 cm. The left maternal ovary measures 3.1 x 1.9 x 2.1 cm. There is no significant maternal adnexal mass. No maternal pelvic ascites. US/US OB <= 14 weeks fetus IMPRESSION: 1. Single intrauterine gestation with ultrasound gestational age of 7 weeks, 1 day +/- 4 days. 2. Estimated date of delivery is 01/24/2024 +/- 4 days. 3. No maternal adnexal mass or pelvic ascites.
== END 2023-06-08 11:01 | disposition home or self-care (01) ==
LOC: HO.US 11:00
PROVIDERS: PCP Internal Medicine; Visit Provider Advanced Practice Midwife
DX: Z34.91 Encounter for supervision of normal pregnancy, unspecified, first trimester (principal); Z3A.01 Less than 8 weeks gestation of pregnancy
CPT/HCPCS: 76801

== ENCOUNTER 2023-06-23 22:15 | Emergency (ER) | payer OTHER, SELFPAY ==
--- NOTE | 2023-06-23 | ECG_ITS ---
Test Reason : syncopy Blood Pressure : / mmHG Vent. Rate : 099 BPM Atrial Rate : 099 BPM P-R Int : 138 ms QRS Dur : 076 ms QT Int : 338 ms P-R-T Axes : 065 087 -10 degrees QTc Int : 433 ms Normal sinus rhythm with sinus arrhythmia ST & T wave abnormality, consider inferior ischemia Abnormal ECG When compared with ECG of 29-JUL-2020 22:11, T wave inversion now evident in Inferior leads Nonspecific T wave abnormality now evident in Anterior leads Referred By: Generic ED Physician Electronically Signed By:BHAVIK BRAR MD
[2023-06-23 22:24] VITALS: BP 140/87; PULSE 95; RESP 16; TEMP 36.9; O2SAT 100; BMI 22.4
[2023-06-23 22:45] LABS: Basophils Absolute Auto 0.1 X10*3/uL (0.0-0.2); Basophils Percent Auto 0.4 % (0-2); Eosinophils Absolute Auto 0.2 X10*3/uL (0.0-0.4); Eosinophils Percent Auto 1.6 % (0-4); Hematocrit 37.4 % (37.0-47.0); Hemoglobin 13.1 g/dl (12.0-16.0); Imm Gran Abs Auto 0.06 X10*3/uL (0.00-0.03); Imm Gran Pct Auto 0.4 % (0.0-0.4); Lymphocytes Absolute Auto 3.6 X10*3/uL (1.2-4.9); Lymphocytes Percent Auto 24.2 % (20-40); MANUAL DIFF FLAG SCAN; Mean Corpuscular Hemoglobin 30.3 pg (27.0-33.0); Mean Corpuscular Volume 86.4 fL (80.0-98.0); Mean Platelet Volume 10.2 fL (9.4-12.3); Monocytes Absolute Auto 1.5 X10*3/uL (0.1-1.2); Monocytes Percent Auto 10.2 % (2-11); Neutrophils Absolute Auto 9.3 x10*3/uL (2.0-8.3); Neutrophils Percent Auto 63.2 % (45-73); Platelet Count 280 X10*3/uL (160-400); Red Blood Count 4.33 X10*6/uL (4.20-5.50); Red Cell Distribution Width 12.3 % (11.0-16.0); SCAN SMEAR FLAG 1; White Blood Count 14.8 X10*3/uL (4.8-10.8)
[2023-06-23 23:02] LABS: SLIDE REVIEW VERIFIED
[2023-06-23 23:04] LABS: Alanine Aminotransferase 16 U/L (0-31); Albumin Level 4.5 g/dL (3.5-5.0); Alkaline Phosphatase 61 U/L (39-117); Anion Gap 14 (12-20); Aspartate Amino Transferase 17 U/L (5-31); Bilirubin Total 0.3 mg/dL (0.0-1.0); Blood Urea Nitrogen 7 mg/dL (9-16); Calcium 9.8 mg/dL (8.4-10.2); Carbon Dioxide 21 mmol/L (22-29); Chloride 106 mmol/L (96-108); Creatinine Clr Calc Pharmacy 92.7; Estimated Glomerular Filt Rate > 60; Glucose Random 99 mg/dL (60-115); Potassium 4.5 mmol/L (3.3-5.1); Sodium 136 mmol/L (135-145); Total Protein 7.8 g/dL (6.5-8.0)
[2023-06-23 23:23] LABS: Influenza A PCR NEGATIVE (Negative); Influenza B PCR NEGATIVE (Negative); Resp Syncy Virus RNA Qual PCR NEGATIVE (Negative); SARS COV2 PCR INHOUSE NEGATIVE (Negative)
[2023-06-23 23:28] LABS: HCG Quantitative > 225000 mIU/mL
[2023-06-24] MEDS: 0.9 % Sodium Chloride 1,000 ML 999 ML IV (00:16)
[2023-06-24] MEDS: ondansetron HCL 4 MG/2 ML VIAL IVPUSH (00:30)
[2023-06-24 01:39] LABS: Appearance Urine Clear; Color Urine Yellow; Glucose Urine UA Negative (Negative); Leukocyte Esterase Urine Negative (Negative); Nitrite Urine Negative (Negative); PH 6.5 (5.0-9.0); Urine Blood Negative (Negative); Urine Ketones 40 mg/dL (Negative); Urine Protein Negative (Neg-Trace)
--- NOTE | 2023-06-24 02:04 | ED_ITS ---
HPI - General Adult General Chief complaint: General Medical Stated complaint: Dizziness/ 9 wks preg Time Seen by Provider: 06/23/23 23:44 Source: patient Mode of arrival: ambulatory Limitations: no limitations History of Present Illness HPI narrative: Patient 9 weeks primary been vomiting for last few weeks unable to drink much fluids today she vomited 4 times has not seen any Ob Gno significant abdominal pain no vaginal bleed no fever no chills no other family member sick no dizziness Related Data Previous Rx's ?Medication ?Instructions ?Recorded ondansetron 4 mg disintegrating 4 mg PO Q8H PRN nausea and 05/29/23 tablet vomiting 15 days #45 tabs metoclopramide HCl 10 mg tablet 10 mg PO Q6H PRN nausea and 06/24/23 (Reglan) vomiting #30 tabs Allergies Allergy/AdvReac Type Severity Reaction Status Date / Time diphenhydramine Allergy Severe Seizure Verified 06/23/23 22:24 [From Benadryl] activity Review of Systems 2 Review of Systems: Yes all other systems are reviewed and are negative [facility] Past Medical History Medical History Abdominal pain Dysuria Fatigue Surgical History No pertinent past surgical history Family History Family History Father No problems noted. Mother Hypertension Maternal Grandmother Hypertension Diabetes Maternal Uncle Cancer Brother In good health Sister In good health Social History Social History Housing: Apartment Alcohol intake: never Patient Tobacco Use Status: Never used Tobacco e-Cigarette/Vaping Use: Never Used Second Hand Smoke Exposure: No Advance Directives: No Advance Directives Information Provided: Yes Do you have a plan to hurt others: No Plan service: No Current occupational status: unemployed Sexual orientation: Straight/Heterosexual Gender identity: Female Cognitive needs: No Hearing needs: No Vision needs: Yes Physical Exam ED Vital Signs: Vital Signs - 24 hr 06/23/23 22:24 Temperature 98.4 F Pulse Rate 95 Respiratory Rate 16 Blood Pressure 140/87 H Pulse Oximetry 100 Oxygen Delivery Method Room Air BMI result Body Mass Index 22.4 Appearance: Alert. Oriented X3. No acute distress. Eyes: No pallor or icterus ENT: Pharynx normal. Oral Mucosa moist Neck: Normal inspection. Neck supple. CVS: Normal heart rate and rhythm. Pulses normal. Respiratory: No respiratory distress. Equal air entry bilateral, Abdomen: Soft and nontender. Bowel sounds are present, no mass palpable, no CVA tenderness Skin: Skin warm and dry. Normal skin color. Normal skin turgor. Extremities: No lower extremity edema. No calf tenderness Neuro: Oriented X 3. Medications Administered Discontinued Medications Generic Name Dose Route Start Last Admin Trade Name Freq PRN Reason Stop Dose Admin Sodium Chloride 1,000 mls @ 999 mls/hr 06/24/23 00:12 06/24/23 01:35 Ns IV 06/24/23 01:12 Infused .Q1H1M ONE Infusion Ondansetron HCl 4 mg 06/24/23 00:12 06/24/23 00:30 Ondansetron Hcl 4 Mg/2 Ml Vial IVPUSH 06/24/23 00:13 4 mg ONCE ONE Administration Medical Decision Making Medical Decision Making [facility] Narrative: Patient with hyperemesis gravidarum 9 weeks received IV fluids will discharge patient home feels better taking p.o. fluids Differential Diagnosis Differential Diagnoses: The differential diagnosis associated with the presentation includes Lab Data [facility] Lab Attestation statement: I reviewed the patient's lab results. 06/23/23 22:38 06/23/23 22:38 Labs: Lab Results 06/23/23 06/24/23 Range/Units 22:38 01:33 WBC 14.8 H (4.8-10.8) X10*3/uL RBC 4.33 (4.20-5.50) X10*6/uL Hgb 13.1 (12.0-16.0) g/dl Hct 37.4 (37.0-47.0) % MCV 86.4 (80.0-98.0) fL MCH 30.3 (27.0-33.0) pg MCHC 35.0 (31.0-35.0) g/dl RDW 12.3 (11.0-16.0) % Plt Count 280 (160-400) X10*3/uL MPV 10.2 (9.4-12.3) fL Immature Gran % (Auto) 0.4 (0.0-0.4) % Neut % (Auto) 63.2 (45-73) % Lymph % (Auto) 24.2 (20-40) % [place] % (Auto) 10.2 (2-11) % Eos % (Auto) 1.6 (0-4) % Baso % (Auto) 0.4 (0-2) % Lymph # (Auto) 3.6 (1.2-4.9) X10*3/uL [place] # (Auto) 1.5 H (0.1-1.2) X10*3/uL Eos # (Auto) 0.2 (0.0-0.4) X10*3/uL Baso # (Auto) 0.1 (0.0-0.2) X10*3/uL Abs Immat Gran (auto) 0.06 H (0.00-0.03) X10*3/uL Absolute Neuts (auto) 9.3 H (2.0-8.3) x10*3/uL Absolute Nucleated RBC 0.000 (0.0-0.012) X10*3/uL Nucleated RBC % (auto) 0.0 (0.0-0.2) /100WBC Smear Tech's Comments VERIFIED Sodium 136 (135-145) mmol/L Potassium 4.5 (3.3-5.1) mmol/L Chloride 106 (96-108) mmol/L Carbon Dioxide 21 L (22-29) mmol/L Anion Gap 14 (12-20) BUN 7 L (9-16) mg/dL Creatinine 0.76 (0.5-1.4) mg/dL Estim Creat Clear Calc 92.7 Estimated GFR > 60 Random Glucose 99 (60-115) mg/dL Calcium 9.8 (8.4-10.2) mg/dL Total Bilirubin 0.3 (0.0-1.0) mg/dL AST 17 (5-31) U/L ALT 16 (0-31) U/L Alkaline Phosphatase 61 (39-117) U/L Total Protein 7.8 (6.5-8.0) g/dL Albumin 4.5 (3.5-5.0) g/dL Beta HCG, Quant > 135871 mIU/mL Urine Color Yellow Urine Appearance Clear Urine pH 6.5 (5.0-9.0) Ur Specific [place] 1.010 (1.005-1.025) Urine Protein Negative (Neg-Trace) mg/dL Urine Glucose (UA) Negative (Negative) mg/dL Urine Ketones 40 (Negative) mg/dL Urine Blood Negative (Negative) Urine Nitrite Negative (Negative) Ur Leukocyte Esterase Negative (Negative) Influenza Type A (PCR) NEGATIVE (Negative) Influenza Type B (PCR) NEGATIVE (Negative) RSV RNA Qual (PCR) NEGATIVE (Negative) SARS-CoV-2 RNA (RT-PCR) NEGATIVE (Negative) Discharge Plan Discharge Clinical Impression: Hyperemesis gravidarum Patient Disposition: Home, Self-Care Instructions: Hyperemesis Gravidarum (ED) Additional Instructions: Drink plenty of fluid Take reglan 1 tablet every 6-8 hours as needed for nausea/vomiting 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
[2023-06-24 02:16] VITALS: BP 107/71; PULSE 64; RESP 18; TEMP 36.9; O2SAT 100
== END 2023-06-24 02:22 | disposition home or self-care (01) ==
PROVIDERS: Emergency Provider Internal Medicine; PCP Internal Medicine
DX: O21.0 Mild hyperemesis gravidarum (principal); Z3A.09 9 weeks gestation of pregnancy
CPT/HCPCS: 0241U; 36415; 80053; 81003; 84702; 85025; 93005; 96361; 96374; 99284; J2405

== ENCOUNTER → 2023-06-23 22:30 | Outpatient (BNV) | payer OTHER, SELFPAY | PROVIDERS: Emergency Provider Internal Medicine; PCP Internal Medicine; Visit Provider Internal Medicine Cardiovascular Disease | DX: I49.8 Other specified cardiac arrhythmias (principal) | CPT/HCPCS: 93010 ==

== ENCOUNTER 2024-01-01 23:38 | Emergency (ER) | payer OTHER, SELFPAY ==
[2024-01-01 23:48] VITALS: BP 139/85; PULSE 89; RESP 16; TEMP 36.5; O2SAT 100; BMI 27.2
[2024-01-02 00:44] LABS: IDNOW Serial# 152EDE1D; IDNOW Serial# 6674DD1D; Influenza A Negative (Negative); Influenza B2 Negative (Negative)
[2024-01-02 00:45] LABS: COVID-19 Test Negative (Negative); IDNOW Serial# 08D9AD1C; Strep A Nucleic Acid Negative (Negative)
[2024-01-02 02:20] VITALS: BP 136/88; PULSE 99; RESP 18; TEMP 36.9; O2SAT 99
--- NOTE | 2024-01-02 03:33 | ED.GENADULT ---
HPI - General Adult General Chief complaint: General Medical Stated complaint: headache Time Seen by Provider: 01/02/24 03:20 Source: patient and family Mode of arrival: ambulatory Limitations: no limitations History of Present Illness ED Provider: DR. Back HPI narrative: 28-year-old female 37 weeks came in for evaluation of upper respiratory symptoms feeling generalized body ache, frontal sinus pressure and headache, bilateral maxillary sinus pressure, sore throat, bilateral ear pain, no photophobia, no neck stiffness, no abdominal pain or contraction, no vaginal bleeding,no sick contacts. Related Data Previous Rx's ?Medication ?Instructions ?Recorded ondansetron 4 mg disintegrating 4 mg PO Q8H PRN nausea and 05/29/23 tablet vomiting 15 days #45 tabs metoclopramide HCl 10 mg tablet 10 mg PO Q6H PRN nausea and 06/24/23 (Reglan) vomiting #30 tabs amoxicillin 500 mg-potassium 1 tab PO BID #14 tabs 01/02/24 clavulanate 125 mg tablet (Augmentin) Allergies Allergy/AdvReac Type Severity Reaction Status Date / Time diphenhydramine Allergy Severe Seizure Verified 01/01/24 23:49 [From Benadryl] activity Review of Systems Review of Systems: All other systems are reviewed and are negative Constitutional: Reports as per HPI and Reports no additional constitutional complaints Eyes: Reports as per HPI and Reports no additional eye complaints Reports system reviewed and no additional complaints, except as documented Cardiovascular: Reports as per HPI and Reports no additional cardiovascular complaints Respiratory: Reports as per HPI and Reports no additional respiratory complaints Gastrointestinal: Reports as per HPI and Reports no additional gastrointestinal complaints Genitourinary: Reports no additional female genitourinary complaints Musculoskeletal: Reports no additional musculoskeletal complaints Skin/Breast: Reports system reviewed and no additional complaints, except as docu Psychiatric: Reports no additional psychiatric complaints Endocrine: Reports no additional endocrine complaints Hematologic/Lymphatic: Reports no additional hematologic/lymphatic complaints Allergic/Immunologic: Reports no additional allergic/immunologic complaints Reports system reviewed and no additional complaints, except as documented and Reports Abnormal speech present [facility] Past Medical History Medical History Abdominal pain Dysuria Fatigue Surgical History No pertinent past surgical history Family History Family History Father No problems noted. Mother Hypertension Maternal Grandmother Hypertension Diabetes Maternal Uncle Cancer Brother In good health Sister In good health Social History Social History Housing: Apartment Alcohol intake: never Patient Tobacco Use Status: Never used Tobacco e-Cigarette/Vaping Use: Never Used Second Hand Smoke Exposure: No Advance Directives: No Advance Directives Information Provided: No Do you have a plan to hurt others: No Plan service: No Current occupational status: unemployed Sexual orientation: Straight/Heterosexual Gender identity: Female Cognitive needs: No Hearing needs: No Vision needs: Yes Physical Exam ED Vital Signs: Vital Signs - 24 hr 01/01/24 23:48 01/02/24 02:20 Temperature 97.7 F 98.4 F Pulse Rate 89 99 Respiratory Rate 16 18 Blood Pressure 139/85 136/88 Pulse Oximetry 100 99 Oxygen Delivery Method Room Air Room Air BMI result Body Mass Index 27.2 Vital signs have been reviewed and appear to be correct. Blood pressure elevated. Heart rate normal. Respiratory rate normal. Temperature normal. Oxygen saturation normal. Appearance: Alert. Oriented X3. No acute distress. Head: Normal external exam. Normocephalic. Atraumatic. No [place] signs noted. No raccoon eyes noted Eyes: PERRLA. EOMI. Conjunctiva and sclera normal. Eyelids normal. ENT: Bilateral frontal sinus tenderness on percussion, bilateral maxillary sinus tenderness on percussion, TM membrane is erythematous bilaterally, pharyngeal erythema without exudate or lymph node enlargement. Neck: Normal inspection. Neck supple. FROM. No adenopathy. Thyroid Normal. No meningeal signs. No neck mass noted. CVS: Normal heart rate and rhythm. Heart sound normal. No murmurs noted. Pulses normal throughout. Respiratory: No respiratory distress. Painless inspiration. Breath sounds normal. No wheezes/rales/rhonchi noted. Chest nontender. No accessory muscle usage noted or decreased air movement noted. Abdomen: Soft and nontender. Bowel sounds normal in all 4 quadrants. No distention noted. No organomegaly noted. No visible injury noted. Back: No CVA tenderness. Full range of motion noted. Skin: Skin warm and dry. Normal skin color. Normal skin turgor. No rashes/lesions/lacerations noted. Extremities: No lower extremity edema. Extremities exhibit normal range of motion. Extremities nontender. Neuro: Oriented X 3. Cranial nerve exam: II-XII are grossly intact No motor deficit. No sensory deficit. Reflexes normal. Course Reevaluation(s) Reevaluation #1: Likely started as a viral syndrome superimposed with a bacterial sinusitis will start the patient on Augmentin. Noncomplicated 3rd trimester , no lower extremities edema, no abdominal pain of contraction, blood pressure is 136/88. Time: 03:36 Medical Decision Making Differential Diagnosis Differential Diagnoses: The differential diagnosis associated with the presentation includes (Flu, strep pharyngitis, COVID-19 infection, RSV.) Admission/Observation Consideration of admission/observation: Escalation of care including admission/observation considered Lab Data MDM Lab Attestation statement: I reviewed the patient's lab results. Labs: Lab Results 01/02/24 Range/Units 00:03 COVID-19 (PRADIP) Negative (Negative) COVID-19 Clin Com See Note Influenza Type A (AROLDO) Negative (Negative) Influenza Type B (AROLDO) Negative (Negative) Influenza A & B Note See Note S. pyogenes GrpA AROLDO Negative (Negative) Discharge Plan Discharge Clinical Impression: Acute frontal sinusitis, Acute viral syndrome Patient Disposition: Home, Self-Care Instructions: Sinusitis (ED) Prescriptions: New amoxicillin-pot clavulanate [Augmentin] 500-125 mg tablet 1 tab PO BID Qty: 14 0RF No Action metoclopramide HCl [Reglan] 10 mg tablet 10 mg PO Q6H PRN (Reason: nausea and vomiting) Qty: 30 0RF ondansetron 4 mg tablet,disintegrating 4 mg PO Q8H PRN (Reason: nausea and vomiting) 15 Days Qty: 45 1RF Referrals: Chang Ceballos MD [Primary Care Provider] - Print Language: Latvian
[2024-01-02] MEDS: Amoxicillin/Potassium Clav 875 MG TABLET PO (03:50)
[2024-01-02 04:48] VITALS: BP 129/83; PULSE 83; RESP 16; TEMP 36.8; O2SAT 98
[2024-01-02 04:49] VITALS: BP 129/83; PULSE 83; RESP 16; TEMP 36.8; O2SAT 98
== END 2024-01-02 04:49 | disposition home or self-care (01) ==
PROVIDERS: Emergency Provider Emergency Medicine; PCP Internal Medicine
DX: J01.10 Acute frontal sinusitis, unspecified (principal); M79.10 Myalgia, unspecified site; R51.9 Headache, unspecified; Z79.899 Other long term (current) drug therapy; Z11.52 Encounter for screening for COVID-19
CPT/HCPCS: 87502; 87635; 87651; 99283

== ENCOUNTER 2024-03-26 11:54 | Outpatient (REF) | payer OTHER, SELFPAY ==
[2024-03-26 13:24] LABS: MANUAL DIFF FLAG NO
[2024-03-26 13:48] LABS: Basophils Absolute Auto 0.1 X10*3/uL (0.0-0.2); Basophils Percent Auto 0.6 % (0-2); Eosinophils Absolute Auto 0.5 X10*3/uL (0.0-0.4); Eosinophils Percent Auto 5.9 % (0-4); Hematocrit 42.7 % (37.0-47.0); Hemoglobin 14.2 g/dl (12.0-16.0); Imm Gran Abs Auto 0.01 X10*3/uL (0.00-0.03); Imm Gran Pct Auto 0.1 % (0.0-0.4); Lymphocytes Absolute Auto 2.3 X10*3/uL (1.2-4.9); Lymphocytes Percent Auto 28.4 % (20-40); Mean Corpuscular HGB Conc 33.3 g/dl (31.0-35.0); Mean Corpuscular Hemoglobin 30.1 pg (27.0-33.0); Mean Corpuscular Volume 90.5 fL (80.0-98.0); Monocytes Absolute Auto 0.7 X10*3/uL (0.1-1.2); Monocytes Percent Auto 8.3 % (2-11); Neutrophils Absolute Auto 4.6 x10*3/uL (2.0-8.3); Neutrophils Percent Auto 56.7 % (45-73); Platelet Count 303 X10*3/uL (160-400); Red Blood Count 4.72 X10*6/uL (4.20-5.50); Red Cell Distribution Width 12.4 % (11.0-16.0); White Blood Count 8.1 X10*3/uL (4.8-10.8)
[2024-03-26 13:54] LABS: Appearance Urine Clear; Color Urine Dark Yellow; Glucose Urine UA Negative (Negative); Leukocyte Esterase Urine Negative (Negative); Nitrite Urine Negative (Negative); PH 5.5 (5.0-9.0); Specific Gravity - Urine >= 1.030 (1.005-1.025); Urine Blood Negative (Negative); Urine Ketones Negative (Negative); Urine Protein Negative (Neg-Trace)
[2024-03-26 14:29] LABS: Alanine Aminotransferase 25 U/L (0-31); Albumin Level 4.6 g/dL (3.5-5.0); Alkaline Phosphatase 134 U/L (39-117); Anion Gap 10 (12-20); Aspartate Amino Transferase 21 U/L (5-31); Bilirubin Total 0.6 mg/dL (0.0-1.0); Blood Urea Nitrogen 13 mg/dL (9-16); Calcium 9.3 mg/dL (8.4-10.2); Carbon Dioxide 28 mmol/L (22-29); Chloride 107 mmol/L (96-108); Estimated Glomerular Filt Rate > 60; Glucose Fasting 82 mg/dL (60-99); Magnesium 2.1 mg/dL (1.6-2.6); Potassium 3.7 mmol/L (3.3-5.1); Sodium 141 mmol/L (135-145)
[2024-03-26 14:37] LABS: TSH reflex Free T4 2.99 uIU/mL (0.32-4.0); Vitamin D 25-OH Total 45.2 ng/mL (>30)
== END 2024-03-26 11:55 | disposition home or self-care (01) ==
LOC: HO.LAB 11:54
PROVIDERS: PCP Internal Medicine
DX: R07.89 Other chest pain (principal); R00.2 Palpitations; R23.1 Pallor; R49.0 Dysphonia; R33.9 Retention of urine, unspecified; Z87.59 Personal history of other complications of pregnancy, childbirth and the puerperium
CPT/HCPCS: 36415; 80053; 81003; 82306; 83735; 84443; 85025; 96127; 99212

== ENCOUNTER 2024-03-26 11:54 | Outpatient (AMB) | payer OTHER, SELFPAY ==
--- NOTE | 2024-03-26 12:01 | MHC.PC.OV ---
Vital Signs 03/26/24 12:02 Height 5 ft 4 in Weight 135 lb 6 oz BMI 23.2 BP 102/72 Blood Pressure Location Lt brachial Position Sitting Pulse 72 Pulse Source Pulse Oximeter Temp 97.9 F Temp Source Temporal Artery Scan Pulse Oximetry (%) 98 Oxygen Delivery Method Room Air Intake Visit Reasons: Sore throat Regulatory Services Consultant Required: Yes Regulatory Services Consultant Language: Java Web Application Developer Name: [id number] Accompanied by: Self / Same As Patient Allergies diphenhydramine [From Benadryl] Allergy (Severe, Verified 03/26/24 12:09) Seizure activity Medication List - Last Reconciled 03/26/[address] amoxicillin-pot clavulanate 500-125 mg (Augmentin) 1 tab PO BID metoclopramide HCl (Reglan) 10 mg PO Q6H PRN ondansetron 4 mg PO Q8H PRN 15 days Tobacco use date assessed: 03/26/24 Dental Screening Dental Screen Date: 03/26/24 Did you have a dental visit in the last 12 months?: Yes Did you have a dental problem in the last 6 months where you did not have access to dental care?: No Was dental information given to patient?: Patient has dentist HPI Sore throat HPI Details The patient is a 29 year female with past medical history of preeclampsia The patient is presenting with complaints of paleness, hoarse voice and feeling weak for the last 2 weeks She reports that sometimes her heart rate is fast sometime it is slow. She reports chest pain in the early mornings only Reports that her chest feels like pain that goes away then comes back Reports her chest pain is more like a pressure pain that is related to her palpitation Patient reports that she had palpitations in the past because she was diagnosed with preeclampsia during her and she was hospitalized for this at [facility] in January of 2024 Reports that she worries about her pale color and her hoarse voice in the mornings She denies shortness of breath, dizziness or headaches The patient reports that 2-3 weeks ago she had a problem with urinating since this has been better Reports that she was actually retaining urine and was not going regularly She reports that when she was hospitalized she had to use the Lo catheter because she was retaining urine in hospital as well Reports that she does not drink much water She denies dysuria, urinary frequency, suprapubic pressure, discharge or blood in the urine [facility] Medical History Abdominal pain Dysuria Fatigue Surgical History No pertinent past surgical history Family History Father No problems noted. Mother Hypertension Maternal Grandmother Hypertension Diabetes Maternal Uncle Cancer Brother In good health Sister In good health Social History Housing: Apartment Alcohol intake: never Patient Tobacco Use Status: Never used Tobacco e-Cigarette/Vaping Use: Never Used Second Hand Smoke Exposure: No service: No Current occupational status: unemployed Sexual orientation: Straight/Heterosexual Gender identity: Female Cognitive needs: No Hearing needs: No Vision needs: Yes Questionnaire PHQ-9 Over the last 2 weeks, how often have you been bothered by any of the following problems? 1. Little interest or pleasure in doing things: not at all 2. Feeling down, depressed, or hopeless: not at all 3. Trouble falling or staying asleep, or sleeping too much: not at all 4. Feeling tired or having little energy: not at all 5. Poor appetite or overeating: not at all 6. Feeling bad about yourself - or that you are a failure or have let yourself or your family down: not at all 7. Trouble concentrating on things, such as reading the newspaper or watching television: not at all 8. Moving or speaking so slowly that other people could have noticed. Or the opposite - being so fidgety or restless that you have been moving around a lot more than usual: not at all 9. Thoughts that you would be better off or of hurting yourself in some way: not at all Total score: 0 Depression Screening Interpretation: Negative Depression Screening Done: Yes 89017 - PHQ-9 Billing: Yes Source: Developed by Drs. Song Herman, Judy Blake, Yefri Chi and colleagues, with an educational hao from [employer]. Thrive Questionnaire Date Thrive assessed: 03/26/24 I am a: Patient What is your living situation today?: I have a steady place to live Within the past 12 months, did the food you bought not last and you didn't have the money to get more?: Never true Within the past 12 months, did you worry whether your food would run out before you got money to buy more?: Never true Do you have trouble paying for medicines?: No Do you have trouble getting transportation to medical appointments?: No Do you have trouble paying your heating and electricity bill?: No Do you have trouble taking care of your child, family member or friend?: No Do you have trouble with day-to-day activities such as bathing, preparing meals, shopping, managing finances, etc.?: No Are you currently unemployed and looking for a job?: No Are you interested in more education?: No Currently or been in a relationship where the following occur: No concerns reported THRIVE Score: 0 AUDIT C Alcohol Use Questionnaire (AUDIT-C) 1. How often do you have a drink containing alcohol?: Never Total Score: 0 Score Reviewed/Action Taken: Yes RITIKA-7 AMB Questionnaire RITIKA-7 Date RITIKA - 7 assessed: 03/26/24 Feeling nervous, anxious, or on edge: 0 = Not at all Not being able to stop or control worryin = Not at all Worrying too much about different things: 0 = Not at all Trouble relaxin = Not at all Being so restless that it is hard to sit still: 0 = Not at all Becoming easily annoyed or irritable: 0 = Not at all Feeling afraid as if something awful might happen: 0 = Not at all Total RITIKA-7 score (0-4 normal; 5-9 mild; 10-14 moderate; 15-21 severe): 0 Source: Developed by Drs. Song Herman, Judy Blake, Yefri Chi and colleagues, with an educational hao from [employer]. RITIKA-7 Assessment Billing RITIKA-7 Assessment Tool: RITIKA-7 Assessment 77808 Review of Systems Const Details: Denies chills, Denies fatigue, Denies fever(s), Denies headache(s) and Denies weakness HEENT Denies change in vision, Denies dizziness, Denies headache(s), Denies hearing loss, Denies nasal congestion, Denies sinus pain, Denies sinus pressure and Denies sore throat Other: Reports hoarse voice in the mornings Card Recurrent chest pain in mornings, Denies lightheadedness, Denies dyspnea and recurrent palpitations that correlates with her chest pain Resp Denies cough, Denies dyspnea and Denies wheezing GI Denies abdominal pain, Denies melena, Denies hematochezia, Denies change in bowel habits, Denies dyspepsia and Denies nausea Denies hematuria and Denies dysuria, previous urinary retention Musc Denies abnormal gait, Denies myalgias, Denies arthralgias, Denies numbness and Denies tingling Skin/Breast Denies rash, Denies unusual bruising and Denies wounds Other: Reports pale skin Neuro Denies abnormal gait, Denies dizziness, Denies headache(s), Denies memory loss, Denies numbness, Denies Sensory deficit (Neuro), Denies tingling and Denies weakness Psych Denies anxiety, Denies depression and Denies memory loss Endo Denies cold intolerance, Denies fatigue, Denies heat intolerance, Denies polydipsia and Denies polyuria Wolf/Lymph Denies easy bleeding and Denies easy bruising Aller/Immun Denies wheezing Physical exam (Primary Care) Vital Signs: Last Vital Signs Temp 97.9 F 03/26/24 12:02 Pulse 72 03/26/24 12:02 BP 102/72 03/26/24 12:02 Pulse Ox 98 03/26/24 12:02 Oxygen Delivery Method Room Air 03/26/24 12:02 BMI result Body Mass Index 23.2 Tobacco/Smoking Status: Tobacco use Status Tobacco use date assessed 03/26/24 03/26/24 12:05 Patient Tobacco Use Status Never used Tobacco 03/26/24 12:05 e-Cigarette/Vaping Use Never Used 03/26/24 12:05 PHQ-9: PHQ-9 Score PHQ-9: Total score 0 03/26/24 23:51 Depression Screening Interpretation: Negative Thrive Assessment: Date of Thrive Assessment Date Thrive assessed 03/26/24 03/26/24 12:05 Currently or been in a relationship where the following occur: No concerns reported Const Other: General: no acute distress, well developed, alert and awake Nutritional Appearance: well nourished Orientation/consciousness: patient oriented x3 HENMT Head: Yes normocephalic and Yes atraumatic Ears: hearing grossly normal bilaterally and TM's normal bilaterally General nose exam: Normal external nose present and Normal nares present Mouth: Normal oral and palatal mucosa present and moist mucous membranes Throat: Yes oropharynx normal Eyes Pupils: Equal, round and reactive pupils present and Pupil accommodation reflex normal EOM: EOMs intact bilaterally Neck Neck: Yes normal visual inspection, Yes no lymphadenopathy and Yes trachea midline Thyroid: Thyroid normal Carotids: no bruits Lymphatic: no lymphadenopathy noted Chest Chest palpation & inspection: normal inspection of the chest Resp Effort & Inspection: normal respiratory effort Auscultation: clear to auscultation bilaterally Cardio Rate: regular rate Rhythm: regular rhythm Heart sounds: S1 normal heart sound present, S2 normal heart sound present, no gallops, no murmurs and no rubs Bruits: no abdominal aortic bruits and no carotid bruits GI Palpation (GI): No Abdominal aortic bruit present, Soft to palpation, nontender, No hepatosplenomegaly present and No Rebound tenderness present Auscultation: normal bowel sounds General: Yes no CVA tenderness Back/Spine/Pelvis Back: no CVA tenderness Cervical Spine: cervical ROM normal and No Cervical spine tenderness Thoracic/Lumbar Spine: thoraco-lumbar ROM normal, No pain with thoraco-lumbar ROM, No thoracic spinal tenderness and No lumbar spinal tenderness Skin General: warm and dry. Normal skin color. Normal skin turgor Lesions: no lesions Rashes: no rashes Trauma: no lacerations or abrasions Wounds: no wounds Nails: normal Neuro General: patient oriented x3, gait normal Cranial nerves: Yes Equal, round and reactive pupils present Cognition (Neuro): normal cognition Gait exam (Neuro): Normal gait present Extrem General: Yes normal to inspection, No edema and No calf tenderness Psych Appearance: grossly normal Affect: normal affect Attitude: cooperative Thought process: Normal thought process present Coding Level of Care Code Est Pt Level 4 (23973) Diagnoses Chest pressure R07.89 Heart palpitations R00.2 Pale skin R23.1 Hoarseness of voice R49.0 Urinary retention R33.9 Additional Codes RITIKA-7 Assessment Billing - RITIKA-7 Assessment Tool: RITIKA-7 Assessment 17999 ([id number]) PHQ-9 - 12914 - PHQ-9 Billing: Yes ([id number]) Time Spent (min) 37 Assessment & Plan Assessment & Plan (1) Chest pressure: Code(s): R07.89 - Other chest pain Category: Medical Plan: Patient reports intermittent chest pain. Frequently in the morning time the correlates with heart palpitation EKG done in office: NSR No red flags noted Labs ordered (2) Heart palpitations: Code(s): R00.2 - Palpitations Category: Medical Plan: Same as above (3) Pale skin: Code(s): R23.1 - Pallor Category: Medical Plan: Patient reports that she has been noticing her complexion to be pale. Patient also endorsed not drinking water. This is unclear the patient is not pale in office. Labs ordered, question dehydration (4) Hoarseness of voice: Code(s): R49.0 - Dysphonia Category: Medical Plan: Patient reports that her for his is worse in the mornings. She also endorse that being able to sleep because she has a young baby that she has to get up frequently to care for. Discussed with patient that her lack of sleep might be causing her hoarse voice in the morning. Voice is not hoarse in office. Thyroid and oral cavity appear normal on exam we will order labs (5) Urinary retention: Code(s): R33.9 - Retention of urine, unspecified Category: Medical Plan: Patient reports retaining urine few weeks ago. Reports that this has resolved but she has a history of retaining urine. As a result she is concerned. Urinalysis with reflex was ordered Plan will advise patient when labs resulted To return as scheduled in April 2024 for her annual physical examination Orders: Orders TSH reflex Free T4 03/26/24 R00.2 - Palpitations, R07.89 - Other chest pain AMB EKG-In Office 03/27/24 R00.2 - Palpitations, R07.89 - Other chest pain Complete Blood Count Auto Diff 03/26/24 R00.2 - Palpitations, R07.89 - Other chest pain Comprehensive [place]. Panel Fast 03/26/24 R00.2 - Palpitations, R07.89 - Other chest pain Vitamin D 25-OH Total 03/26/24 R00.2 - Palpitations, R07.89 - Other chest pain UA CC w/rflx Micro + Cult 03/26/24 R00.2 - Palpitations, R07.89 - Other chest pain Magnesium 03/26/24 R00.2 - Palpitations, R07.89 - Other chest pain
[2024-03-26 12:02] VITALS: BP 102/72; PULSE 72; TEMP 36.6; O2SAT 98; BMI 23.2
== END 2024-03-26 12:57 | disposition home or self-care (01) ==
PROVIDERS: PCP Internal Medicine
DX: R07.89 Other chest pain (principal); R00.2 Palpitations; R23.1 Pallor; R49.0 Dysphonia; R33.9 Retention of urine, unspecified

== ENCOUNTER 2024-05-06 14:08 | Outpatient (AMB) | payer OTHER, SELFPAY ==
--- NOTE | 2024-05-06 14:11 | MHC.PC.OV ---
Vital Signs 05/06/24 14:12 Height 5 ft 4 in Weight 132 lb BMI 22.7 BP 120/70 Blood Pressure Location Lt brachial Position Sitting Pulse 71 Pulse Source Pulse Oximeter Temp 97.1 F Temp Source Temporal Artery Scan Pulse Oximetry (%) 97 Oxygen Delivery Method Room Air Intake Visit Reasons: swollen leg Intake Note: Patient is here to follow up on right swollen leg. Photo Machine Operator Required: Yes Photo Machine Operator Language: Syriac Information Interpreted: non-clinical & clinical Bander And Cellophaner Machine: Not Required per policy Accompanied by: Self / Same As Patient Allergies diphenhydramine [From Benadryl] Allergy (Severe, Verified 05/06/24 14:29) Seizure activity Medication List - Last Reconciled 05/06/24 by Becca Carpenter PA-C No Known Home Meds Tobacco use date assessed: 05/06/24 Dental Screening Dental Screen Date: 03/26/24 HPI swollen leg HPI Details 29-year-old female with past medical history of urinary retention last seen 02/2024 by nurse practitioner coming in for acute problem. 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 The patient is a 29-year-old female presenting with leg pain and difficulty breathing. Reports leg pain began one day ago, located in the calf, with associated swelling but no warmth, immobility, or use of control. Denies any upper leg pain, immobility, or particular aggravating or relieving factors. Difficulty breathing occurs intermittently, not daily, and short episodes of about 30 minutes without chest tightness, not correlated to specific triggers, but felt partly with . New development of brown lines on nails post-delivery noted, with no elevated blood pressure or fevers since delivery. [facility] Medical History Abdominal pain Dysuria Fatigue Surgical History No pertinent past surgical history Family History Father No problems noted. Mother Hypertension Maternal Grandmother Hypertension Diabetes Maternal Uncle Cancer Brother In good health Sister In good health Social History Housing: Apartment Alcohol intake: never Patient Tobacco Use Status: Never used Tobacco e-Cigarette/Vaping Use: Never Used Second Hand Smoke Exposure: No service: No Current occupational status: unemployed Sexual orientation: Straight/Heterosexual Gender identity: Female Cognitive needs: No Hearing needs: No Vision needs: Yes Questionnaire Thrive Questionnaire Date Thrive assessed: 03/26/24 RITIKA-7 AMB Questionnaire RITIKA-7 Date RITIKA - 7 assessed: 03/26/24 Source: Developed by Drs. Song Herman, Judy Blake, Yefri Chi and colleagues, with an educational hao from [employer]. Review of Systems Const Denies body aches, Denies chills, Denies fever(s), Denies headache(s) and Denies poor appetite Eyes Reports no additional complaints ENT Denies dysphagia, Denies dizziness, Denies headache(s) and Denies odynophagia Card Denies chest pain, Denies syncope, Denies edema, Denies irregular heart rhythm, Denies lightheadedness, Reports dyspnea and Denies dyspnea on exertion Resp Denies cough, Reports dyspnea and Denies dyspnea on exertion GI Denies abdominal pain, Denies dysphagia, Denies nausea, Denies odynophagia and Denies vomiting Reports no additional complaints Musc Details: right calf pain Reports no additional complaints and Denies abnormal gait Skin/Breast Reports system reviewed and no additional complaints, except as documented Neuro Denies abnormal gait, Denies dizziness, Denies syncope and Denies headache(s) Psych Reports no additional complaints Physical exam (Primary Care) Tobacco/Smoking Status: Tobacco use Status Tobacco use date assessed 03/26/24 03/26/24 12:05 Patient Tobacco Use Status Never used Tobacco 03/26/24 12:05 e-Cigarette/Vaping Use Never Used 03/26/24 12:05 Thrive Assessment: Date of Thrive Assessment Date Thrive assessed 03/26/24 03/26/24 12:05 Const General: cooperative, healthy appearing, comfortable and no acute distress Orientation/consciousness: patient oriented x3 HENMT Head: Yes normocephalic Ears: hearing grossly normal bilaterally General nose exam: Normal external nose present Eyes General: appearance normal, both eyes and all related structures Conjunctivae: conjunctivae normal Neck Neck: Yes full ROM and Yes no lymphadenopathy Resp Effort & Inspection: normal respiratory effort Auscultation: clear to auscultation bilaterally, no crackles, no rales, no rhonchi and no wheezes Cardio Rate: regular rate Rhythm: regular rhythm Skin General skin exam: no rashes or lesions noted Neuro General: patient oriented x3 Gait exam (Neuro): Normal gait present Extrem Other: Tenderness to palpation over right calf and dorsal aspect of right foot. Intact strength sensation and pulses in bilateral lower extremities. General: Yes normal to inspection, Yes full ROM and No edema Psych Affect: normal affect Attitude: cooperative Insight: Good insight present (Psych) Judgement: Good judgement present (Psych) Coding Level of Care Code Est Pt Level 4 (89207) Diagnoses Right calf pain M79.661 Shortness of breath R06.02 Nail discoloration L60.8 Assessment & Plan Assessment & Plan (1) Right calf pain: Code(s): M79.661 - Pain in right lower leg Category: Medical Plan: Evaluation focuses on potential deep vein thrombosis in the leg with recent onset of pain and swelling, potentially linked to status. Ultrasound is scheduled to assess for DVT, and anticoagulation therapy will depend on findings. Symptomatic treatment includes leg stretching, heat use, and acetaminophen as required for pain. Coordination for diagnostic tests and monitoring of any new symptoms continues, with discussion on diagnostic timing with respect to safety. I discussed with patient red flag symptoms and when to present for re-evaluation and when to present to ED. (2) Shortness of breath: Code(s): R06.02 - Shortness of breath Category: Medical Plan: Given patient's status and new onset of shortness of breath and calf pain CT angio is necessary to evaluate for possible pulmonary embolism. Ordered for stat CT scan. Advised patient if she has worsening symptoms to go immediately to the ED. I ordered for blood work including D-dimer and kidney function testing prior to the test. (3) Nail discoloration: Code(s): L60.8 - Other nail disorders Category: Medical Plan: Nail discoloration will be investigated through lab work for nutritional deficiencies. Plan This note was constructed using voice recognition software. While every effort has been made to ensure accuracy and folded towel machine operator, still areas may have been included sometimes these areas may affect the content or meeting of the given symptoms. Total time spent caring for the patient today was 30 minutes. This includes time spent before the visit reviewing the chart, time spent during the visit, and time spent after the visit and documentation. Patient was informed and verbally consented to the use of an ambient scribe for clinic note documentation during this visit. Orders: Orders US venous duplex LE RT Today M79.661 - Pain in right lower leg D Dimer High Sensitivity Today R06.02 - Shortness of breath CT angio chest PE protocol Today M79.661 - Pain in right lower leg, R06.02 - Shortness of breath PFT pulmonary function test Today R06.02 - Shortness of breath Comprehensive Met. Panel Today Z00.00 - Encounter for general adult medical examination without abnormal findings Medications: New ammonium lactate 12% (AmLactin) 1 appl topical DAILY 225 grams 1RF
[2024-05-06 14:12] VITALS: BP 120/70; PULSE 71; TEMP 36.2; O2SAT 97; BMI 22.7
== END 2024-05-06 15:01 | disposition home or self-care (01) ==
PROVIDERS: PCP Internal Medicine
DX: M79.661 Pain in right lower leg (principal); R06.02 Shortness of breath; L60.8 Other nail disorders

== ENCOUNTER 2024-05-06 14:08 | Outpatient (REF) | payer OTHER, SELFPAY ==
[2024-05-06 17:16] LABS: D Dimer High Sensitivity < 150 NG/ML
[2024-05-06 17:57] LABS: Albumin Level 4.6 g/dL (3.5-5.0); Alkaline Phosphatase 122 U/L (39-117); Anion Gap 9 (12-20); Aspartate Amino Transferase 20 U/L (5-31); Bilirubin Total 0.5 mg/dL (0.0-1.0); Blood Urea Nitrogen 15 mg/dL (9-16); Calcium 9.5 mg/dL (8.4-10.2); Carbon Dioxide 27 mmol/L (22-29); Chloride 109 mmol/L (96-108); Estimated Glomerular Filt Rate > 60; Glucose Random 80 mg/dL (60-115); Potassium 4.2 mmol/L (3.3-5.1); Sodium 141 mmol/L (135-145); Total Protein 8.1 g/dL (6.5-8.0)
[2024-05-06 18:12] LABS: Alanine Aminotransferase 25 U/L (0-31)
== END 2024-05-06 14:09 | disposition home or self-care (01) ==
LOC: HO.LAB 14:08
PROVIDERS: PCP Internal Medicine
DX: M79.661 Pain in right lower leg (principal); R06.02 Shortness of breath; L60.8 Other nail disorders; Z00.00 Encounter for general adult medical examination without abnormal findings
CPT/HCPCS: 36415; 80053; 85379; 99212

== ENCOUNTER 2024-05-06 15:36 | Outpatient (REF) | payer OTHER, SELFPAY ==
--- NOTE | ~2024-05-06 | US_ITS ---
EXAMINATION: US TRIPLEX LOWER EXTREMITY, RIGHT CLINICAL INFORMATION: Right lower leg pain. COMPARISON: None available. TECHNIQUE: Color-flow triplex imaging with spectral analysis and compression Doppler were performed on the right lower extremity. FINDINGS: Respiratory variation, normal compression and augmented flow are noted throughout the right lower extremity. The visualized common femoral vein, superficial femoral vein, profunda femoral vein, popliteal vein and midcalf peroneal and posterior tibial venous segments show no evidence of deep venous thrombosis. There is no Graham's cyst. There are reactive appearing lymph nodes in the right groin. In the area of pain in the right upper to mid calf, no abnormality is evident. US/US venous duplex LE RT IMPRESSION: No evidence of deep venous thrombosis involving the right lower extremity. Electronically signed by: Prem Garcia MD 05/06/2024 04:22 PM EDT
== END 2024-05-06 15:37 | disposition home or self-care (01) ==
LOC: HO.US 15:36
DX: M79.661 Pain in right lower leg (principal)
CPT/HCPCS: 93971

== ENCOUNTER → 2024-05-06 15:37 | Outpatient (BNV) | payer OTHER, SELFPAY | PROVIDERS: Visit Provider Radiology Diagnostic Radiology | DX: M79.661 Pain in right lower leg (principal) | CPT/HCPCS: 93971 ==

== ENCOUNTER 2024-07-15 14:10 | Emergency (ER) | payer OTHER, SELFPAY ==
--- NOTE | ~2024-07-15 | MR_ITS ---
CLINICAL HISTORY: Concern for cerebral venous thrombosis MR Venography head with and without gadolinium Comparison: None Findings: Patent sagittal, transverse, sigmoid, inferior sagittal and straight sinuses. Patent internal cerebral and basal veins. Internal jugular veins are patent. IMPRESSION: Normal MRV brain This document has been electronically signed by: Pauline Armendariz MD on 07/15/2024 18:13:20
--- NOTE | 2024-07-15 14:11 | ED.GENADULT ---
HPI - General Adult General Chief complaint: General Medical Stated complaint: chest pain Time Seen by Provider: 07/15/24 14:22 History of Present Illness ED Provider: Dr. Lau HPI narrative: 29 y/o F patient; without significant PMH; presents from home with report of severe left-sided chest pain and left arm pain/heaviness. Associated with left arm paresthesias. Patient also endorses right-sided facial numbness only. She describes a headache that travels only down the middle of her head. She give in December 2023 and is still lactating. She otherwise denies: nausea/vomiting, SOB, abdominal pain, fever or chills. She denies prior similar symptoms. She denies any prior diagnosis of anxiety. Related Data Previous Rx's ?Medication ?Instructions ?Recorded ammonium lactate 12 % lotion 1 appl topical DAILY #225 grams 05/06/24 (AmLactin) blood sugar diagnostic (FreeStyle #100 ea 07/15/24 Lite Strips) 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,international affairs vice president,cont #1 ea 07/15/24 (FreeStyle Dolores 3 [place]) lancets 28 gauge (FreeStyle #100 ea 07/15/24 Lancets) Allergies Allergy/AdvReac Type Severity Reaction Status Date / Time diphenhydramine Allergy Severe Seizure Verified 07/15/24 14:19 [From Benadryl] activity Review of Systems Review of Systems: Yes all other systems are reviewed and are negative Neurologic: Denies Abnormal speech present and Reports Sensory deficit (Neuro) [facility] Past Medical History Attestation statement: The following information was validated with the patient. Source: old records reviewed Medical History Abdominal pain Dysuria Fatigue Surgical History No pertinent past surgical history Family History Family History Father No problems noted. Mother Hypertension Maternal Grandmother Hypertension Diabetes Maternal Uncle Cancer Brother In good health Sister In good health Social History Social History Housing: Apartment Alcohol intake: never Patient Tobacco Use Status: Never used Tobacco e-Cigarette/Vaping Use: Never Used Second Hand Smoke Exposure: No Advance Directives: No Advance Directives Information Provided: Yes service: No Current occupational status: unemployed Sexual orientation: Straight/Heterosexual Gender identity: Female Cognitive needs: No Hearing needs: No Vision needs: Yes Physical Exam ED Vital Signs: Vital Signs - 24 hr 07/15/24 14:14 07/15/24 18:06 Temperature 97.4 F 97.8 F Pulse Rate 120 H 89 Respiratory Rate 22 H 16 Blood Pressure 154/112 H 122/86 Pulse Oximetry 94 100 Oxygen Delivery Method Room Air BMI result Body Mass Index 23.0 Patient is tachycardia, tachypnic and mildly hypertensive. Const General: cooperative Orientation/consciousness: patient oriented x3 HENMT Head: Yes normal to inspection and Yes atraumatic Eyes General: appearance normal, both eyes and all related structures Pupils: Equal, round and reactive pupils present EOM: EOMs intact bilaterally Neck Neck: Yes normal visual inspection, Yes full ROM, Yes supple and No tender Chest Chest palpation & inspection: normal inspection of the chest and normal palpation of entire chest wall Resp Effort & Inspection: normal respiratory effort, able to speak in complete sentences, no cough and no respiratory distress Auscultation: clear to auscultation bilaterally Cardio Rate: tachycardic Rhythm: regular rhythm Peripheral pulses: Peripheral pulses 2+ throughout GI Inspection: Yes normal to inspection, No Abdominal wall edema and No distended Palpation (GI): Soft to palpation, not firm, nontender, no guarding and not rigid Auscultation: normal bowel sounds Back/Spine/Pelvis Back: No back tenderness Neuro Other: Diminished sensation in left upper extremity General: patient oriented x3 Cranial nerves: Yes Equal, round and reactive pupils present Cognition (Neuro): normal cognition Speech: No Abnormal speech present Gait exam (Neuro): Normal gait present Motor exam (neuro): 5/5 motor strength present throughout Sensory Exam: Sensory deficit (Neuro) Coordination: [id number] test normal, [id number] test normal and Normal rapid alternating movements of the distal upper extremity present (Neuro) Course Course Course Narrative: RME performed by Verónica Miranda PA-C. Patient is a 29 year old assigned female at presenting to the emergency department feeling generally unwell. Detailed physical exam and review of systems are deferred to the commercial sales director. criminal justice instructor aware. Reevaluation(s) Reevaluation #1: Will obtain screening labs. No leukocytosis or anemia. Given right-sided facial paresthesias, superior cranial headache, and left arm paresthesias/numbness/heaviness - will obtain an MRI/MRV to assess for possible cerebral venous thrombosis. Will transition care pending MR results. Condition: Stable Reevaluation #2: negative work up and with me her NIH is 0 can follow up with PCP start motrin/tylenol has AM weakness and shakiness could be low BS will educate how to check and order glucometer LANCE 07/15/24 621pm Medications Administered Discontinued Medications Generic Name Dose Route Start Last Admin Trade Name Freq PRN Reason Stop Dose Admin Gadobutrol 10 ml 07/15/24 17:55 07/15/24 17:55 Gadobutrol 10 Ml Vial IVPUSH 07/15/24 17:56 10 ml ONCE ONE Administration Medical Decision Making Lab Data 07/15/24 15:08 07/15/24 15:08 Labs: Lab Results 07/15/24 07/15/24 Range/Units 15:08 17:10 WBC 8.2 (4.8-10.8) X10*3/uL RBC 4.89 (4.20-5.50) X10*6/uL Hgb 14.8 (12.0-16.0) g/dl Hct 43.0 (37.0-47.0) % MCV 87.9 (80.0-98.0) fL MCH 30.3 (27.0-33.0) pg MCHC 34.4 (31.0-35.0) g/dl RDW 12.3 (11.0-16.0) % Plt Count 253 (160-400) X10*3/uL MPV 10.6 (9.4-12.3) fL Immature Gran % (Auto) 0.4 (0.0-0.4) % Neut % (Auto) 59.4 (45-73) % Lymph % (Auto) 27.4 (20-40) % [place] % (Auto) 7.6 (2-11) % Eos % (Auto) 4.5 H (0-4) % Baso % (Auto) 0.7 (0-2) % Lymph # (Auto) 2.2 (1.2-4.9) X10*3/uL [place] # (Auto) 0.6 (0.1-1.2) X10*3/uL Eos # (Auto) 0.4 (0.0-0.4) X10*3/uL Baso # (Auto) 0.1 (0.0-0.2) X10*3/uL Abs Immat Gran (auto) 0.03 (0.00-0.03) X10*3/uL Absolute Neuts (auto) 4.9 (2.0-8.3) x10*3/uL Absolute Nucleated RBC 0.000 (0.0-0.012) X10*3/uL Nucleated RBC % (auto) 0.0 (0.0-0.2) /100WBC Sodium 140 (135-145) mmol/L Potassium 3.8 (3.3-5.1) mmol/L Chloride 108 (96-108) mmol/L Carbon Dioxide 20 L (22-29) mmol/L Anion Gap 16 (12-20) BUN 14 (9-16) mg/dL Creatinine 0.72 (0.5-1.4) mg/dL Estim Creat Clear Calc 97.1 Estimated GFR > 60 Random Glucose 97 (60-115) mg/dL Calcium 10.3 H D (8.4-10.2) mg/dL Troponin I High Sens < 2.7 (<3.5-17.0) ng/L Beta HCG, Quant < 2 mIU/mL Urine Opiates Screen Not Detected (Not Detect) Ur Buprenorphine Scrn Not Detected (Not Detect) ng/mL Ur Oxycodone Screen Not Detected (Not Detect) ng/mL Urine Methadone Screen Not Detected (Not Detect) ng/mL Urine Fentanyl Screen Not Detected (Not Detect) Ur Barbiturates Screen Not Detected (Not Detect) Ur Phencyclidine Scrn Not Detected (Not Detect) Ur Amphetamines Screen Not Detected (Not Detect) U Benzodiazepines Scrn Not Detected (Not Detect) Urine Cocaine Screen Not Detected (Not Detect) U Marijuana (THC) Screen Not Detected (Not Detect) Ethyl Alcohol 10 mg/dL Independent Interpretation I performed an independent interpretation of an: EKG Interpretation: NSR 86BPM without ischemic changes Discharge Plan Discharge Clinical Impression: Arm pain, left, Headache Patient Disposition: Home, Self-Care Instructions: General Headache (ED) Additional Instructions: You were seen today for a headache, left arm pain, right sided facial numbness. Your MRI and labs were reassuring. I recommend you follow up with your primary doctor regarding your recent emergency department visit and for re-evaluation. Return to the emergency department with any concerns! Prescriptions: New (DME) lancets [FreeStyle Lancets] 28 gauge misc See Rx Instructions .Route Qty: 100 0RF Rx Instructions: As directed use in AM and at night to check blood sugars (DME) FreeStyle Dolores 3 [place] Misc See Rx Instructions .Route Qty: 1 0RF Rx Instructions: directed use in AM and at night to check blood sugars (DME) FreeStyle Lite Strips Strip See Rx Instructions .Route Qty: 100 0RF Rx Instructions: As directed use in AM and at night to check blood sugars No Action ammonium lactate [AmLactin] 12 % lotion 1 appl topical DAILY Qty: 225 1RF Print Language: Qatari
[2024-07-15 14:14] VITALS: BP 154/112; PULSE 120; RESP 22; TEMP 36.3; O2SAT 94; BMI 23.0
--- NOTE | 2024-07-15 14:41 | ECG_ITS ---
Test Reason : ANXIETY Blood Pressure : */* mmHG Vent. Rate : 86 BPM Atrial Rate : 86 BPM P-R Int : 174 ms QRS Dur : 84 ms QT Int : 358 ms P-R-T Axes : 62 88 54 degrees QTcB Int : 428 ms Normal sinus rhythm Nonspecific ST abnormality Abnormal ECG When compared with ECG of 23-Jun-2023 22:30, Nonspecific T wave abnormality has replaced inverted T waves in Inferior leads Referred By: Amita Lau Electronically Signed By: Jarrett Greene
[2024-07-15 15:12] LABS: MANUAL DIFF FLAG NO
[2024-07-15 15:22] LABS: Basophils Absolute Auto 0.1 X10*3/uL (0.0-0.2); Basophils Percent Auto 0.7 % (0-2); Eosinophils Absolute Auto 0.4 X10*3/uL (0.0-0.4); Eosinophils Percent Auto 4.5 % (0-4); Hemoglobin 14.8 g/dl (12.0-16.0); Imm Gran Abs Auto 0.03 X10*3/uL (0.00-0.03); Imm Gran Pct Auto 0.4 % (0.0-0.4); Lymphocytes Absolute Auto 2.2 X10*3/uL (1.2-4.9); Lymphocytes Percent Auto 27.4 % (20-40); Mean Corpuscular HGB Conc 34.4 g/dl (31.0-35.0); Mean Corpuscular Hemoglobin 30.3 pg (27.0-33.0); Mean Corpuscular Volume 87.9 fL (80.0-98.0); Mean Platelet Volume 10.6 fL (9.4-12.3); Monocytes Absolute Auto 0.6 X10*3/uL (0.1-1.2); Monocytes Percent Auto 7.6 % (2-11); Neutrophils Absolute Auto 4.9 x10*3/uL (2.0-8.3); Neutrophils Percent Auto 59.4 % (45-73); Platelet Count 253 X10*3/uL (160-400); Red Blood Count 4.89 X10*6/uL (4.20-5.50); Red Cell Distribution Width 12.3 % (11.0-16.0); White Blood Count 8.2 X10*3/uL (4.8-10.8)
[2024-07-15 15:40] LABS: Anion Gap 16 (12-20); Blood Urea Nitrogen 14 mg/dL (9-16); Calcium 10.3 mg/dL (8.4-10.2); Carbon Dioxide 20 mmol/L (22-29); Chloride 108 mmol/L (96-108); Creatinine Clr Calc Pharmacy 97.1; Estimated Glomerular Filt Rate > 60; Ethanol 10 mg/dL; Glucose Random 97 mg/dL (60-115); Potassium 3.8 mmol/L (3.3-5.1); Sodium 140 mmol/L (135-145)
[2024-07-15 15:55] LABS: HCG Quantitative < 2 mIU/mL
[2024-07-15 17:02] LABS: Troponin-I High Sensitivity < 2.7 ng/L (<3.5-17.0)
[2024-07-15 17:26] LABS: Amphetamine Screen Urine Not Detected (Not Detect); Barbiturates, Urine Not Detected (Not Detect); Benzodiazepines Screen Urine Not Detected (Not Detect); Buprenorphine Scr Not Detected (Not Detect); Cannabinoid Screen Urine Not Detected (Not Detect); Cocaine Screen Urine Not Detected (Not Detect); Fentanyl, urine Not Detected (Not Detect); Methadone Screen, Urine Not Detected (Not Detect); Opiate Screen Urine Not Detected (Not Detect); Oxycodone Screen Urine Not Detected (Not Detect); Phencyclidine Screen Urine Not Detected (Not Detect)
[2024-07-15] MEDS: gadobutroL 10 ML VIAL IVPUSH (17:55)
[2024-07-15 18:06] VITALS: BP 122/86; PULSE 89; RESP 16; TEMP 36.6; O2SAT 100
[2024-07-15 18:35] LABS: Glucose, Whole Blood 80 mg/dL (60-115)
[2024-07-15 18:37] VITALS: BP 109/80; PULSE 87; RESP 16; TEMP 36.4; O2SAT 98
[2024-07-15 19:04] VITALS: BP 109/80; PULSE 87; RESP 16; TEMP 36.4; O2SAT 98
== END 2024-07-15 19:04 | disposition home or self-care (01) ==
PROVIDERS: Emergency Provider Emergency Medicine; PCP Internal Medicine
DX: M79.602 Pain in left arm (principal); R51.9 Headache, unspecified; R07.9 Chest pain, unspecified; R29.700 NIHSS score 0; R00.0 Tachycardia, unspecified; R20.2 Paresthesia of skin; Z79.899 Other long term (current) drug therapy
CPT/HCPCS: 36415; 70546; 80048; 80307; 82947; 84484; 84702; 85025; 93005; 99284; 99285; A9585

== ENCOUNTER → 2024-07-15 14:41 | Outpatient (BNV) | payer OTHER, SELFPAY | PROVIDERS: Emergency Provider Emergency Medicine; PCP Internal Medicine; Visit Provider Internal Medicine Cardiovascular Disease | DX: R94.31 Abnormal electrocardiogram [ECG] [EKG] (principal); F41.9 Anxiety disorder, unspecified | CPT/HCPCS: 93010 ==

== ENCOUNTER → 2024-07-15 16:04 | Outpatient (BNV) | payer OTHER, SELFPAY | PROVIDERS: Emergency Provider Emergency Medicine; PCP Internal Medicine; Visit Provider Radiology Diagnostic Radiology | DX: R29.810 Facial weakness (principal); R51.9 Headache, unspecified | CPT/HCPCS: 70546 ==

== ENCOUNTER 2024-07-24 16:24 | Outpatient (AMB) | payer OTHER, SELFPAY ==
[2024-07-24 16:28] VITALS: BP 120/82; PULSE 88; O2SAT 99; BMI 23.1
--- NOTE | 2024-07-24 16:28 | MHC.PC.OV ---
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 Required: No Accompanied by: Self / Same As Patient Allergies diphenhydramine [From Benadryl] Allergy (Severe, Verified 07/24/24 16:50) Seizure activity Medication List - Last Reconciled 07/24/24 by Chang Ceballos MD ammonium lactate 12% (AmLactin) 1 appl topical DAILY blood sugar diagnostic (FreeStyle Lite Strips) As directed use in AM and at night to check blood sugars 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,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,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 (FreeStyle Dolores 3 [place]) directed use in AM and at night to check blood sugars lancets (FreeStyle Lancets) As directed use in AM and at night to check blood sugars Tobacco use date assessed: 07/24/24 Dental Screening Dental Screen Date: 07/24/24 Did you have a dental visit in the last 12 months?: No Did you have a dental problem in the last 6 months where you did not have access to dental care?: No Was dental information given to patient?: No [place] [facility] [place] pain HPI Details Patient comes in today for her [facility] follow up visit She went to the ER early last week for severe left-sided chest pain and left arm pain/heaviness as well as some left arm paresthesias Patient also reports that she was experiencing right-sided facial numbness then as well as a headache that travels only down the middle of her head She denied experiencing any anxiety at the time but now admits to feeling stressed often lately and adds that she has not been able to get a good night's sleep in a while now She currently has a 6 month old baby and is currently still breast feeding so she has not really taken any medications to help with her issues lately as she does not want to take the risk that what she takes may affect her baby She was worked up in the ER for her symptoms, including cardiac enzymes and EKG, both of which came back normal She also had an MR Venography of the head done to r/o central venous thrombosis and her scan came back negative She was instructed to take some Motrin or Tylenol to help with her symptoms and was discharged home with instructions to follow up with her PCP CARMEN Patient states that she currently feels okay She still has the aforementioned occasional headaches but denies any dizziness Denies any exertional chest pains, no SOB No nausea/vomiting, no abdominal pain No change in bowel habits noted [facility] Medical History (Updated 07/25/24 @ 01:53 by Chang Ceballos MD) Abdominal pain Fatigue Surgical History No pertinent past surgical history Family History Father No problems noted. Mother Hypertension Maternal Grandmother Hypertension Diabetes Maternal Uncle Cancer Brother In good health Sister In good health Social History Housing: Apartment Alcohol intake: never Patient Tobacco Use Status: Never used Tobacco e-Cigarette/Vaping Use: Never Used Second Hand Smoke Exposure: No service: No Current occupational status: unemployed Sexual orientation: Straight/Heterosexual Gender identity: Female Cognitive needs: No Hearing needs: No Vision needs: Yes Questionnaire PHQ-9 Over the last 2 weeks, how often have you been bothered by any of the following problems? 1. Little interest or pleasure in doing things: not at all 2. Feeling down, depressed, or hopeless: not at all 3. Trouble falling or staying asleep, or sleeping too much: several days 4. Feeling tired or having little energy: several days 5. Poor appetite or overeating: not at all 6. Feeling bad about yourself - or that you are a failure or have let yourself or your family down: not at all 7. Trouble concentrating on things, such as reading the newspaper or watching television: not at all 8. Moving or speaking so slowly that other people could have noticed. Or the opposite - being so fidgety or restless that you have been moving around a lot more than usual: not at all 9. Thoughts that you would be better off or of hurting yourself in some way: not at all Total score: 2 Depression Screening Interpretation: Negative Depression Screening Done: Yes 25673 - PHQ-9 Billing: Yes Source: Developed by Drs. Song Herman, Judy Blake, Yefri Chi and colleagues, with an educational hao from [employer]. Thrive Questionnaire Date Thrive assessed: 07/24/24 I am a: Patient What is your living situation today?: I have a steady place to live Within the past 12 months, did the food you bought not last and you didn't have the money to get more?: Never true Within the past 12 months, did you worry whether your food would run out before you got money to buy more?: Never true Do you have trouble paying for medicines?: No Do you have trouble getting transportation to medical appointments?: No Do you have trouble paying your heating and electricity bill?: No Do you have trouble taking care of your child, family member or friend?: No Do you have trouble with day-to-day activities such as bathing, preparing meals, shopping, managing finances, etc.?: No Are you currently unemployed and looking for a job?: I choose not to answer this question Are you interested in more education?: I choose not to answer this question Please select the resources that you would like help with: None Currently or been in a relationship where the following occur: No concerns reported THRIVE Score: 0 AUDIT C Alcohol Use Questionnaire (AUDIT-C) 1. How often do you have a drink containing alcohol?: Never 3. How often do you have six or more drinks on one occasion?: Never Total Score: 0 Score Reviewed/Action Taken: Yes RITIKA-7 AMB Questionnaire RITIKA-7 Date RITIKA - 7 assessed: 07/24/24 Feeling nervous, anxious, or on edge: 0 = Not at all Not being able to stop or control worryin = Not at all Worrying too much about different things: 0 = Not at all Trouble relaxin = Not at all Being so restless that it is hard to sit still: 0 = Not at all Becoming easily annoyed or irritable: 0 = Not at all Feeling afraid as if something awful might happen: 0 = Not at all Total RITIKA-7 score (0-4 normal; 5-9 mild; 10-14 moderate; 15-21 severe): 0 Source: Developed by Judy Hernández Kurt Kroenke and colleagues, with an educational hao from [employer]. Review of Systems Const Denies chills, Reports difficulty sleeping, Reports fatigue, Denies fever(s) and Reports headache(s) (on and off - see HPI for details) Eyes Denies blurry vision, Denies seeing flashes and Denies photophobia ENT Denies dysphagia, Denies dizziness, Denies otalgia, Reports headache(s) (on and off - see HPI for details), Denies neck pain, Denies odynophagia and Denies sore throat Card Reports chest pain (on and off over the left side of her chest), Denies chest pain with activity, Denies palpitations and Denies dyspnea Resp Denies chest congestion, Denies cough and Denies dyspnea GI Denies abdominal pain, Denies constipation, Denies dysphagia, Denies heartburn, Denies diarrhea, Denies nausea, Denies odynophagia and Denies vomiting Denies difficulty voiding, Denies nocturia and Denies dysuria Musc Denies back pain, Denies neck pain and Reports numbness (on and off on the right side of the face) Skin/Breast Denies rash Neuro Denies dizziness, Reports headache(s) (on and off - see HPI for details) and Reports numbness (on and off on the right side of the face) Psych Reports anxiety and Denies depression Endo Reports fatigue and Denies palpitations Physical exam (Primary Care) Vital Signs: Last Vital Signs Pulse 88 07/24/24 16:28 BP 120/82 07/24/24 16:28 Pulse Ox 99 07/24/24 16:28 Oxygen Delivery Method Room Air 07/24/24 16:28 BMI result Body Mass Index 23.1 Tobacco/Smoking Status: Tobacco use Status Tobacco use date assessed 07/24/24 07/24/24 16:34 Patient Tobacco Use Status Never used Tobacco 07/24/24 16:34 e-Cigarette/Vaping Use Never Used 07/24/24 16:34 PHQ-9: PHQ-9 Score PHQ-9: Total score 2 07/24/24 16:57 Depression Screening Interpretation: Negative Thrive Assessment: Date of Thrive Assessment Date Thrive assessed 07/24/24 07/24/24 16:34 Currently or been in a relationship where the following occur: No concerns reported Const General: no acute distress and alert Orientation/consciousness: patient oriented x3 HENMT Ears: TM's normal bilaterally and EAC's normal Throat: Yes posterior oropharynx normal and Yes tonsils normal (no TP congestion) Eyes Direct Ophthalmoscopy: No photophobia Neck Neck: Yes supple and No lymphadenopathy Thyroid: Thyroid normal Resp Auscultation: clear to auscultation bilaterally, no rales and no wheezes Cardio Rate: regular rate Rhythm: regular rhythm Heart sounds: no murmurs GI Palpation (GI): Soft to palpation and nontender Auscultation: normal bowel sounds General: Yes no CVA tenderness Back/Spine/Pelvis Back: no CVA tenderness Thoracic/Lumbar Spine: No lumbar spinal tenderness Skin Rashes: no rashes Neuro General: patient oriented x3, moves all extremities, no focal motor deficits and CN's II-XI intact bilaterally Extrem General: Yes no clubbing, cyanosis or edema Coding Level of Care Code Est Pt Level 4 (33155) Diagnoses Left-sided chest pain R07.9 Acute nonintractable headache, unspecified headache type R51.9 Headache type: unspecified Headache chronicity pattern: acute headache Intractability: not intractable Facial paresthesia R20.2 Insomnia, unspecified type G47.00 Insomnia type: unspecified Anxiety F41.9 Additional Codes PHQ-9 - 88002 - PHQ-9 Billing: Yes ([id number]) Assessment & Plan Assessment & Plan (1) Left-sided chest pain: Code(s): R07.9 - Chest pain, unspecified Category: Medical (2) Headache: Code(s): R51.9 - Headache, unspecified Category: Medical Qualifiers: Headache type: unspecified Headache chronicity pattern: acute headache Intractability: not intractable Qualified Code(s): R51.9 - Headache, unspecified (3) Facial paresthesia: Code(s): R20.2 - Paresthesia of skin Category: Medical (4) Insomnia: Code(s): G47.00 - Insomnia, unspecified Category: Medical Qualifiers: Insomnia type: unspecified Qualified Code(s): G47.00 - Insomnia, unspecified (5) Anxiety: Code(s): F41.9 - Anxiety disorder, unspecified Category: Medical Plan Patient has been advised/reassured that majority of her recent symptoms are most likely due to stress/anxiety as well as to her lack of sleep She had works ups done at the ER early last week, including cardiac enzymes and EKG, both of which came back normal She also had an MR Venography of the head done to r/o central venous thrombosis and her scan came back negative Will go ahead and start her on Melatonin 5 mg Q HS PRN to help with her sleep at night and on Sertraline 50 mg QD for her anxiety issues She is reassured that both of these medications are safe for lactating / mothers and should have no impact at all on her child Patient adds that she hardly goes outside and is wondering if she should take some Vitamin D supplements - I have advised her to do so (Rx for Vitamin D3 2000 units sent to her pharmacy) She is currently also taking vitamins daily and would like to know if she should continue on this - I have advised her to continue on this as well Will also have her get some follow up labs done in a couple of months before she returns for her next follow up appointment Follow up in 2 months Orders: Orders TSH reflex Free T4 2 Months E78.00 - Pure hypercholesterolemia, unspecified, R07.9 - Chest pain, unspecified Vitamin D 25-OH Total 2 Months E55.9 - Vitamin D deficiency, unspecified, R07.9 - Chest pain, unspecified Complete Blood Count Auto Diff 2 Months D64.9 - Anemia, unspecified, R07.9 - Chest pain, unspecified Comprehensive Met. Panel 2 Months R07.9 - Chest pain, unspecified UA CC w/rflx Micro + Cult 2 Months R07.9 - Chest pain, unspecified, R30.0 - Dysuria Medications: New sertraline 50 mg PO DAILY 30 days 30 tabs 2RF cholecalciferol (vitamin D3) 50 mcg PO DAILY 90 days 90 caps 3RF E55.9 - Vitamin D deficiency, unspecified melatonin 5 mg PO BEDTIME 30 days PRN 30 tabs 2RF sleep
== END 2024-07-24 17:00 | disposition home or self-care (01) ==
LOC: HO.HMCH 16:25
PROVIDERS: PCP Internal Medicine; Visit Provider Internal Medicine
DX: R07.9 Chest pain, unspecified (principal); R51.9 Headache, unspecified; R20.2 Paresthesia of skin; G47.00 Insomnia, unspecified; F41.9 Anxiety disorder, unspecified

== ENCOUNTER → 2024-07-24 16:24 | Outpatient (BNVA) | payer OTHER, SELFPAY | PROVIDERS: PCP Internal Medicine; Visit Provider Internal Medicine | DX: R07.9 Chest pain, unspecified (principal); R51.9 Headache, unspecified; R20.2 Paresthesia of skin; G47.00 Insomnia, unspecified; F41.9 Anxiety disorder, unspecified; Z79.899 Other long term (current) drug therapy | CPT/HCPCS: 96127; 99212 ==

== ENCOUNTER 2024-10-31 00:46 | Emergency (ER) | payer OTHER, SELFPAY ==
--- NOTE | ~2024-10-31 | XR_ITS ---
CLINICAL HISTORY: pain 1 view abdomen Comparison: None provided Findings: No pneumoperitoneum or pneumatosis. No dilated loops of bowel or evidence for bowel obstruction. There is a moderate colonic stool burden, most prominent over the right hemiabdomen, with a [id number] rectal stool burden. No acute fractures. IMPRESSION: 1. Nonobstructed bowel-gas pattern. 2. Moderate colonic stool burden with a [id number] rectal stool burden. This document has been electronically signed by: Gareth Newton MD on 10/31/2024 04:06:18
[2024-10-31 00:50] VITALS: BP 129/71; PULSE 88; RESP 16; TEMP 36.8; O2SAT 100; BMI 26.8
--- NOTE | 2024-10-31 01:30 | ED_ITS ---
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 She also complains of constipation. She reports she had a small bowel movement today but reports that she has not had a large bowel movement in several days. Denies any nausea vomiting, diarrhea. She reports some burning with urination denies any vaginal bleeding or discharge she reports that she is sexually active with 1 partner, denies any vaginal bleeding or discharge. 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 #1 ea 07/15/24 (FreeStyle Dolores 3 [place]) lancets 28 gauge (FreeStyle #100 ea 07/15/24 Lancets) cholecalciferol (vitamin D3) 50 50 mcg PO DAILY 90 day s #90 caps 07/24/24 mcg (2,000 unit) capsule melatonin 5 mg tablet 5 mg PO BEDTIME PRN sleep 30 days 07/24/24 #30 tabs sertraline 50 mg tablet 50 mg PO DAILY 30 days #30 t abs 07/24/24 docusate sodium 100 mg capsule 100 mg PO BID #14 caps 10/31/24 (Colace) polyethylene glycol 3350 17 See Rx Instructions .Route 10/31/24 gram/dose oral powder (Miralax) .COMPLEX #238 grams Allergies Allergy/AdvReac Type Severity Reaction Status Date / Time diphenhydramine (From Allergy Severe Seizure Verified 10/31/24 00:52 Benadryl) activity Review of Systems 2 Constitutional: Constitutional: Denies body ache(s), Denies chills, Denies fever(s) and Denies headache(s) Eyes: Eyes: Denies blurry vision ENT: Denies dizziness, Denies dry mouth, Denies headache(s) and Denies epistaxis Cardiovascular: Cardiovascular: Denies chest pain and Denies dyspnea on exertion Respiratory: Respiratory: Denies cough and Denies dyspnea on exertion Gastrointestinal: Gastrointestinal: Reports abdominal pain, Reports constipation, Denies nausea and Denies vomiting Genitourinary: Genitourinary: Reports difficulty voiding, Denies genital pruritis, Denies genital lesions, Denies menorrhagia, Reports dysuria, Reports flank pain, Denies vaginal discharge and Denies vaginal pruritus Musculoskeletal: Musculoskeletal: Denies back pain Neurologic: Denies dizziness and Denies headache(s) PMFSH Past Medical History Medical History (Updated 10/31/24 @ 04:13 by ANIBAL Prescott) Abdominal pain Fatigue Surgical History No pertinent past surgical history Family History Family History Father No problems noted. Mother Hypertension Maternal Grandmother Hypertension Diabetes Maternal Uncle Cancer Brother In good health Sister In good health Social History Social History Housing: Apartment Alcohol intake: never Patient Tobacco Use Status: Never used Tobacco e-Cigarette/Vaping Use: Never Used Second Hand Smoke Exposure: No Advance Directives: No Do you have a plan to hurt others: No Plan service: No Current occupational status: unemployed Sexual orientation: Straight/Heterosexual Gender identity: Female Cognitive needs: No Hearing needs: No Vision needs: Yes Physical Exam ED Vital Signs: Vital Signs - 24 hr 10/31/24 00:50 10/31/24 02:00 Temperature 98.3 F 98.9 F Pulse Rate 88 94 Respiratory Rate 16 20 Blood Pressure 129/71 126/83 Pulse Oximetry 100 100 Oxygen Delivery Method Room Air Room Air BMI result Body Mass Index 26.8 Const General: healthy appearing, comfortable, no acute distress, alert and awake Nutritional Appearance: well nourished Orientation/consciousness: patient oriented x3 HENMT Head: Yes normocephalic and Yes atraumatic Eyes Eyelids: Yes eyelids normal Conjunctivae: conjunctivae normal Sclerae: sclerae normal Corneas: corneas normal Pupils: Equal, round and reactive pupils present EOM: EOMs intact bilaterally Neck Neck: Yes full ROM Resp Effort & Inspection: normal respiratory effort, able to speak in complete sentences and not labored GI Inspection: No distended Palpation (GI): Soft to palpation, not firm, nontender, no guarding and not rigid Skin General skin exam: elasticity normal Neuro General: patient oriented x3 Cranial nerves: Yes Equal, round and reactive pupils present and Yes Bilaterally intact EOM present Cognition (Neuro): normal cognition Extrem Other: Moving all extremities well without any obvious deformities Course Reevaluation(s) Reevaluation #1: I Maribeth Lo PA-C have accepted care of the patient and signed out pending labs and imaging Labs: No abnormalities noted per the chemistry KUB: Significant constipation Medical Decision Making Medical Decision Making MDM Narrative: 29-year-old female presents for evaluation of lower abdominal pain, constipation and burning with urination. Denies any vaginal bleeding or discharge. She is not concerned about a sexually transmitted infections. Plan for labs urinalysis and a KUB. On exam she has no significant Tylenol tenderness, she is not distended. Vital signs are stable. We will also check your . Mostly likely diagnosis seems to be UTI versus constipation or both Differential Diagnosis Differential Diagnoses: The differential diagnosis associated with the presentation includes ovarian cyst UTI Cystitis Abdominal pain Constipation Lab Data 10/31/24 01:32 10/31/24 02:08 Labs: Lab Results 10/31/24 10/31/24 10/31/24 Range/Units 01:32 01:33 02:08 WBC 9.9 (4.8-10.8) X10*3/uL RBC 4.51 (4.20-5.50) X10*6/uL Hgb 13.5 (12.0-16.0) g/dl Hct 40.4 (37.0-47.0) % MCV 89.6 (80.0-98.0) fL MCH 29.9 (27.0-33.0) pg MCHC 33.4 (31.0-35.0) g/dl RDW 12.1 (11.0-16.0) % Plt Count 242 (160-400) X10*3/uL MPV 10.3 (9.4-12.3) fL Immature Gran % (Auto) 0.3 (0.0-0.4) % Neut % (Auto) 60.9 (45-73) % Lymph % (Auto) 26.0 (20-40) % [place] % (Auto) 8.6 (2-11) % Eos % (Auto) 3.7 (0-4) % Baso % (Auto) 0.5 (0-2) % Lymph # (Auto) 2.6 (1.2-4.9) X10*3/uL [place] # (Auto) 0.9 (0.1-1.2) X10*3/uL Eos # (Auto) 0.4 (0.0-0.4) X10*3/uL Baso # (Auto) 0.1 (0.0-0.2) X10*3/uL Abs Immat Gran (auto) 0.03 (0.00-0.03) X10*3/uL Absolute Neuts (auto) 6.0 (2.0-8.3) x10*3/uL Absolute Nucleated RBC 0.000 (0.0-0.012) X10*3/uL Nucleated RBC % (auto) 0.0 (0.0-0.2) /100WBC Sodium 141 (135-145) mmol/L Potassium 3.8 (3.3-5.1) mmol/L Chloride 107 (96-108) mmol/L Carbon Dioxide 25 (22-29) mmol/L Anion Gap 13 (12-20) BUN 15 (9-16) mg/dL Creatinine 1.23 (0.5-1.4) mg/dL Estim Creat Clear Calc 56.6 Estimated GFR 52 Random Glucose 91 (60-115) mg/dL Calcium 9.2 D (8.4-10.2) mg/dL Total Bilirubin 0.3 (0.0-1.0) mg/dL AST 18 (5-31) U/L ALT 18 (0-31) U/L Alkaline Phosphatase 114 (39-117) U/L Total Protein 8.1 H (6.5-8.0) g/dL Albumin 5.2 H (3.5-5.0) g/dL Lipase 40 (8-78) U/L Beta HCG, Quant < 2 mIU/mL Urine Color Yellow Urine Appearance Clear Urine pH 6.0 (5.0-9.0) Ur Specific [place] 1.015 (1.005-1.025) Urine Protein Negative (Neg-Trace) mg/dL Urine Glucose (UA) Negative (Negative) mg/dL Urine Ketones Negative (Negative) mg/dL Urine Blood Negative (Negative) Urine Nitrite Negative (Negative) Ur Leukocyte Esterase Negative (Negative) Urine RBC 0-2 (0-2) /HPF Urine WBC 0-5 (0-5) /HPF Ur Squamous Epith Cells 0-2 (0-2) /HPF Urine Bacteria None Seen (None Seen) Hyaline Casts 0-2 (0-2) /LPF Discharge Plan Discharge Clinical Impression: Constipation Patient Disposition: Home, Self-Care Instructions: Constipation (ED) Additional Instructions: All of your screening labs were normal, your urine is not infected. The x-ray revealed that you were considerably constipated. See home care instructions. Use the Colace as directed this is a stool softener. Take the MiraLax as directed, you should be using it 4 to 5 times a day until you begin to have multiple large volume bowel movements. Once you clear your current stool burden, use the Colace daily in the MiraLax daily, to prevent episodes of constipation. Follow up with your primary care provider as needed. Prescriptions: New docusate sodium [Colace] 100 mg capsule 100 mg PO BID Qty: 14 0RF polyethylene glycol 3350 [Miralax] 17 gram/dose powder See Rx Instructions .ROUTE .COMPLEX Qty: 238 0RF Rx Instructions: 17 g orally, take as directed per your discharge instructions No Action (DME) lancets [FreeStyle Lancets] 28 gauge misc See Rx Instructions .Route Qty: 100 0RF Rx Instructions: As directed use in AM and at night to check blood sugars (DME) FreeStyle Dolores 3 [place] Misc See Rx Instructions .Route Qty: 1 0RF Rx Instructions: directed use in AM and at night to check blood sugars (DME) FreeStyle Lite Strips Strip See Rx Instructions .Route Qty: 100 0RF Rx Instructions: As directed use in AM and at night to check blood sugars ammonium lactate [AmLactin] 12 % lotion 1 appl topical DAILY Qty: 225 1RF sertraline 50 mg tablet 50 mg PO DAILY 30 Days Qty: 30 2RF melatonin 5 mg tablet 5 mg PO BEDTIME PRN (Reason: sleep) 30 Days Qty: 30 2RF cholecalciferol (vitamin D3) 50 mcg (2,000 unit) capsule 50 mcg PO DAILY 90 Days Qty: 90 3RF Stand Alone Forms: Work/School Release Print Language: Lithuanian
[2024-10-31 01:38] LABS: Appearance Urine Clear; Glucose Urine UA Negative (Negative); PH 6.0 (5.0-9.0); Specific Gravity - Urine 1.015 (1.005-1.025)
[2024-10-31 01:39] LABS: Hematocrit 40.4 % (37.0-47.0); Hemoglobin 13.5 g/dl (12.0-16.0); Imm Gran Abs Auto 0.03 X10*3/uL (0.00-0.03); Imm Gran Pct Auto 0.3 % (0.0-0.4); Lymphocytes Absolute Auto 2.6 X10*3/uL (1.2-4.9); MANUAL DIFF FLAG NO; Mean Corpuscular HGB Conc 33.4 g/dl (31.0-35.0); Mean Corpuscular Hemoglobin 29.9 pg (27.0-33.0); Mean Corpuscular Volume 89.6 fL (80.0-98.0); NRBC Abs Auto 0.000 X10*3/uL (0.0-0.012); NRBC Pct Auto 0.0 /100WBC (0.0-0.2); PLT CLUMP 1; Red Blood Count 4.51 X10*6/uL (4.20-5.50); SCAN SMEAR FLAG 1; White Blood Count 9.9 X10*3/uL (4.8-10.8)
[2024-10-31 02:00] VITALS: BP 126/83; PULSE 94; RESP 20; TEMP 37.2; O2SAT 100
[2024-10-31 02:31] LABS: Platelet Count 242 X10*3/uL (160-400)
--- NOTE | 2024-10-31 02:47 | ECG_ITS ---
Test Reason : CP Blood Pressure : */* mmHG Vent. Rate : 93 BPM Atrial Rate : 93 BPM P-R Int : 158 ms QRS Dur : 84 ms QT Int : 340 ms P-R-T Axes : 47 78 25 degrees QTcB Int : 422 ms Normal sinus rhythm Nonspecific ST and T wave abnormality Abnormal ECG When compared with ECG of 15-Jul-2024 14:34, No significant change was found Referred By: Natty Carballo Electronically Signed By: Jarrett Greene
[2024-10-31 03:05] LABS: Alanine Aminotransferase 18 U/L (0-31); Albumin Level 5.2 g/dL (3.5-5.0); Alkaline Phosphatase 114 U/L (39-117); Anion Gap 13 (12-20); Aspartate Amino Transferase 18 U/L (5-31); Blood Urea Nitrogen 15 mg/dL (9-16); Calcium 9.2 mg/dL (8.4-10.2); Carbon Dioxide 25 mmol/L (22-29); Chloride 107 mmol/L (96-108); Creatinine Clr Calc Pharmacy 56.6; Estimated Glomerular Filt Rate 52; Lipase 40 U/L (8-78); Potassium 3.8 mmol/L (3.3-5.1); Sodium 141 mmol/L (135-145); Total Protein 8.1 g/dL (6.5-8.0)
[2024-10-31 04:42] VITALS: BP 122/77; PULSE 77; RESP 15; TEMP 36.6; O2SAT 98
== END 2024-10-31 04:43 | disposition home or self-care (01) ==
PROVIDERS: Emergency Provider Emergency Medicine; PCP Internal Medicine
DX: K59.00 Constipation, unspecified (principal); R10.2 Pelvic and perineal pain; R07.89 Other chest pain; Z79.899 Other long term (current) drug therapy
CPT/HCPCS: 36415; 74018; 80053; 81001; 83690; 84702; 85025; 93005; 99283

== ENCOUNTER → 2024-10-31 01:10 | Outpatient (BNV) | payer OTHER, SELFPAY | PROVIDERS: Emergency Provider Emergency Medicine; PCP Internal Medicine; Visit Provider Radiology Diagnostic Radiology | DX: K59.00 Constipation, unspecified (principal); R10.30 Lower abdominal pain, unspecified; R14.0 Abdominal distension (gaseous) | CPT/HCPCS: 74018 ==

== ENCOUNTER → 2024-10-31 02:47 | Outpatient (BNV) | payer OTHER, SELFPAY | PROVIDERS: Emergency Provider Emergency Medicine; PCP Internal Medicine; Visit Provider Internal Medicine Cardiovascular Disease | DX: R94.31 Abnormal electrocardiogram [ECG] [EKG] (principal); R07.9 Chest pain, unspecified | CPT/HCPCS: 93010 ==

== ENCOUNTER 2024-11-12 16:39 | Outpatient (AMB) | payer OTHER, SELFPAY ==
[2024-11-12 16:41] VITALS: BP 120/80; PULSE 90; O2SAT 99; BMI 23.8
--- NOTE | 2024-11-12 16:41 | MHC.PC.OV ---
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: No Accompanied by: Self / Same As Patient Allergies diphenhydramine (From Benadryl) Allergy (Severe, Verified 11/12/24 16:56) Seizure activity Medication List - Last Reconciled 11/12/24 by Chang Ceballos MD ammonium lactate 12% (AmLactin) 1 appl topical DAILY blood sugar diagnostic (FreeStyle Lite Strips) As directed use in AM and at night to check blood sugars 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,pan reclaim processor,cont (FreeStyle [place] 3 [place]) directed use in AM and at night to check blood sugars cholecalciferol (vitamin D3) 50 mcg PO DAILY 90 days docusate sodium (Colace) 100 mg PO BID lancets (FreeStyle Lancets) As directed use in AM and at night to check blood sugars melatonin 5 mg PO BEDTIME PRN 30 days polyethylene glycol 3350 (Miralax) 17 g orally, take as directed per your discharge instructions sertraline 50 mg PO DAILY 30 days Tobacco use date assessed: 11/12/24 Dental Screening Dental Screen Date: 11/12/24 Did you have a dental visit in the last 12 months?: Yes Did you have a dental problem in the last 6 months where you did not have access to dental care?: No Was dental information given to patient?: Patient has dentist HPI annual exam HPI Details Patient comes in today for her annual physical examination She went to the ER a couple of weeks ago for abdominal pain and was found to have significant constipation as her KUB revealed (+) moderate colonic stool burden with a [id number] rectal stool burden She was sent hime with Rx for Miralax and stool softeners but patient states that she is not taking them consistently States that her bowel habits often consists of on and off diarrhea and constipation and she is concerned that taking the prescriptions will exacerbate her diarrhea further States that she is still experiencing frequent sensations of bloating and generalized abdominal discomfort and sometimes pain States that she feels okay otherwise She denies any headaches or dizziness Denies any chest pains, no SOB No nausea/vomiting noted She denies any acute urinary symptoms She had some labs done when she went to the ER a couple of weeks ago She has not had her yearly gynecology exam and pap smear done since late 2022 but is scheduled for this in a couple of weeks on 12/04/2024 [facility] Medical History (Updated 11/13/24 @ 05:32 by Chang Ceballos MD) Insomnia Anxiety Vitamin D deficiency Constipation Fatigue Surgical History No pertinent past surgical history Family History Father No problems noted. Mother Hypertension Maternal Grandmother Hypertension Diabetes Maternal Uncle Cancer Brother In good health Sister In good health Social History Housing: Apartment Alcohol intake: never Patient Tobacco Use Status: Never used Tobacco e-Cigarette/Vaping Use: Never Used Second Hand Smoke Exposure: No service: No Current occupational status: unemployed Sexual orientation: Straight/Heterosexual Gender identity: Female Cognitive needs: No Hearing needs: No Vision needs: Yes Questionnaire Thrive Questionnaire Date Thrive assessed: 07/24/24 I am a: Patient What is your living situation today?: I have a steady place to live Within the past 12 months, did the food you bought not last and you didn't have the money to get more?: Never true Within the past 12 months, did you worry whether your food would run out before you got money to buy more?: Never true Do you have trouble paying for medicines?: No Do you have trouble getting transportation to medical appointments?: No Do you have trouble paying your heating and electricity bill?: No Do you have trouble taking care of your child, family member or friend?: No Do you have trouble with day-to-day activities such as bathing, preparing meals, shopping, managing finances, etc.?: No Are you currently unemployed and looking for a job?: I choose not to answer this question Are you interested in more education?: I choose not to answer this question Please select the resources that you would like help with: None Currently or been in a relationship where the following occur: No concerns reported THRIVE Score: 0 AUDIT C Alcohol Use Questionnaire (AUDIT-C) 1. How often do you have a drink containing alcohol?: Never 3. How often do you have six or more drinks on one occasion?: Never Total Score: 0 Score Reviewed/Action Taken: Yes RITIKA-7 AMB Questionnaire RITIKA-7 Date RITIKA - 7 assessed: 07/24/24 Source: Developed by Drs. Song Herman, Judy Blake, Yefri Chi and colleagues, with an educational hao from [employer]. Review of Systems Const Denies chills, Denies fatigue, Denies fever(s), Denies headache(s) and Denies malaise Eyes Denies blurry vision, Denies change in vision, Denies irritation and Denies itchy eyes ENT Denies dysphagia, Denies dizziness, Denies otalgia, Denies headache(s), Denies nasal congestion, Denies neck pain, Denies odynophagia, Denies sinus pain and Denies sore throat Card Denies chest pain, Denies rapid heart rate, Denies irregular heart rhythm, Denies palpitations and Denies dyspnea Resp Denies chest congestion, Denies cough, Denies dyspnea and Denies wheezing GI Reports abdominal pain (occasionally, with (+) frequent generalized abdominal discomfort), Reports bloating, Reports constipation (on and off), Denies dysphagia, Denies heartburn, Reports diarrhea (on and off), Denies nausea, Denies odynophagia and Denies vomiting Denies hematuria, Denies difficulty voiding, Denies dysuria, Denies urinary incontinence and Denies urinary urgency Musc Denies back pain, Denies arthralgias, Denies joint swelling, Denies muscle weakness and Denies neck pain Skin/Breast Denies breast pain, Denies breast mass, Denies change in pigmentation, Denies lesions, Denies rash and Denies unusual bruising Neuro Denies dizziness, Denies headache(s) and Denies paresthesias Psych Denies anxiety and Denies depression Endo Denies fatigue and Denies palpitations Wolf/Lymph Denies easy bruising Aller/Immun Denies itchy eyes and Denies wheezing Physical exam (Primary Care) Vital Signs: Last Vital Signs Pulse 90 11/12/24 16:41 BP 120/80 11/12/24 16:41 Pulse Ox 99 11/12/24 16:41 Oxygen Delivery Method Room Air 11/12/24 16:41 BMI result Body Mass Index 23.8 Tobacco/Smoking Status: Tobacco use Status Tobacco use date assessed 11/12/24 11/12/24 16:46 Patient Tobacco Use Status Never used Tobacco 11/12/24 16:46 e-Cigarette/Vaping Use Never Used 11/12/24 16:46 Thrive Assessment: Date of Thrive Assessment Date Thrive assessed 07/24/24 11/12/24 16:46 Currently or been in a relationship where the following occur: No concerns reported Const General: no acute distress, alert and awake Orientation/consciousness: patient oriented x3 HENMT Head: Yes normocephalic and Yes atraumatic Ears: external ears normal, TM's normal bilaterally and EAC's normal General nose exam: No nasal discharge present Face and sinus: Yes normal facial exam and Yes sinuses nontender Teeth and gingiva: dentition normal Throat: Yes posterior oropharynx normal and Yes tonsils normal (no TP congestion) Eyes Eyelids: Yes eyelids normal Conjunctivae: conjunctivae normal Pupils: Equal, round and reactive pupils present EOM: EOMs intact bilaterally Neck Neck: Yes supple and No lymphadenopathy Thyroid: Thyroid normal Resp Auscultation: clear to auscultation bilaterally, no rales and no wheezes Cardio Rate: regular rate Rhythm: regular rhythm Heart sounds: no murmurs GI Palpation (GI): Soft to palpation, nontender (but reports (+) discomfort on deep palpation), no guarding, not rigid, No hepatosplenomegaly present and No Rebound tenderness present Auscultation: normal bowel sounds General: Yes no CVA tenderness Back/Spine/Pelvis Back: no CVA tenderness Thoracic/Lumbar Spine: thoracic and lumbar spine normal to inspection Skin Lesions: no lesions Rashes: no rashes Neuro General: patient oriented x3, moves all extremities, no focal motor deficits and CN's II-XI intact bilaterally Cranial nerves: Yes Equal, round and reactive pupils present Cognition (Neuro): normal cognition Gait exam (Neuro): Normal gait present Extrem General: Yes no clubbing, cyanosis or edema Results Reviewed Results Reviewed: Laboratory Tests 10/31/24 10/31/24 10/31/24 01:32 01:33 02:08 WBC 9.9 Hgb 13.5 Hct 40.4 Plt Count 242 Sodium 141 Potassium 3.8 Creatinine 1.23 Estimated GFR 52 Random Glucose 91 Calcium 9.2 D AST 18 ALT 18 Total Protein 8.1 H Albumin 5.2 H Ur Specific [place] 1.015 Urine Protein Negative Urine Glucose (UA) Negative Urine Blood Negative Urine Nitrite Negative Ur Leukocyte Esterase Negative Coding Level of Care Code Est Pt Prev Care 18-39y(50561) Diagnoses Annual physical exam Z00.00 Constipation, unspecified constipation type K59.00 Constipation type: unspecified constipation type Vitamin D deficiency E55.9 Insomnia, unspecified type G47.00 Insomnia type: unspecified Anxiety F41.9 Assessment & Plan Assessment & Plan (1) Annual physical exam: Code(s): Z00.00 - Encounter for general adult medical examination without abnormal findings Category: Medical Plan: Check labs CARMEN to complete her annual exam today She is due for her yearly gynecology exam and pap smear and [facility] on 12/04/2024 (2) Constipation: Code(s): K59.00 - Constipation, unspecified Category: Medical Qualifiers: Constipation type: unspecified constipation type Qualified Code(s): K59.00 - Constipation, unspecified Plan: Reinforced increased oral fluid and dietary fiber intake Patient is advised to start back on Miralax 17 gm QD and to take this everyday for it to be effective Have advised patient she has significant colonic stool burden on her recent KUB and that her on and off diarrhea, which could be due to overflow diarrhea or she may have IBS (states that she has a few family members who have been diagnosed with IBS by their doctors) Will go ahead and refer her to Gastroenterology for further evaluation and management of her chronic constipation and bowel issues (3) Vitamin D deficiency: Code(s): E55.9 - Vitamin D deficiency, unspecified Category: Medical Plan: Will recheck her Vitamin D level for follow up (4) Insomnia: Code(s): G47.00 - Insomnia, unspecified Category: Medical Qualifiers: Insomnia type: unspecified Qualified Code(s): G47.00 - Insomnia, unspecified Plan: Sleep hygiene reinforced Continue Melatonin 5 mg Q HS PRN (5) Anxiety: Code(s): F41.9 - Anxiety disorder, unspecified Category: Medical Plan: Continue Sertraline 50 mg QD Plan Follow up in 3 months Orders: Orders Complete Blood Count Auto Diff 11/12/24 D64.9 - Anemia, unspecified, Z00.00 - Encounter for general adult medical examination without abnormal findings Lipid Panel 11/12/24 E78.00 - Pure hypercholesterolemia, unspecified, Z00.00 - Encounter for general adult medical examination without abnormal findings Magnesium 11/12/24 E83.42 - Hypomagnesemia, Z00.00 - Encounter for general adult medical examination without abnormal findings UA CC w/rflx Micro + Cult 11/12/24 R30.0 - Dysuria, Z00.00 - Encounter for general adult medical examination without abnormal findings Vitamin B12 and Folate 11/12/24 E53.8 - Deficiency of other specified B group vitamins, Z00.00 - Encounter for general adult medical examination without abnormal findings Comprehensive [place]. Panel Fast 11/12/24 E78.00 - Pure hypercholesterolemia, unspecified, Z00.00 - Encounter for general adult medical examination without abnormal findings TSH reflex Free T4 11/12/24 E78.00 - Pure hypercholesterolemia, unspecified, Z00.00 - Encounter for general adult medical examination without abnormal findings Vitamin D 25-OH Total 11/12/24 E55.9 - Vitamin D deficiency, unspecified, Z00.00 - Encounter for general adult medical examination without abnormal findings Referrals Gastroenterology Referral K58.9 - Irritable bowel syndrome, unspecified, K59.00 - Constipation, unspecified Medications: Changed From polyethylene glycol 3350 (Miralax) 17 g orally, take as directed per your discharge instructions 238 grams 0RF To polyethylene glycol 3350 (Miralax) 17 grams PO DAILY 510 grams 5RF 30 days
== END 2024-11-12 17:15 | disposition home or self-care (01) ==
LOC: HO.HMCH 16:40
PROVIDERS: PCP Internal Medicine; Visit Provider Internal Medicine
DX: Z00.00 Encounter for general adult medical examination without abnormal findings (principal); K59.00 Constipation, unspecified; E55.9 Vitamin D deficiency, unspecified; G47.00 Insomnia, unspecified; F41.9 Anxiety disorder, unspecified

== ENCOUNTER → 2024-11-12 16:39 | Outpatient (BNVA) | payer OTHER, SELFPAY | PROVIDERS: PCP Internal Medicine; Visit Provider Internal Medicine | DX: Z00.00 Encounter for general adult medical examination without abnormal findings (principal); R10.84 Generalized abdominal pain; E55.9 Vitamin D deficiency, unspecified; G47.00 Insomnia, unspecified; F41.9 Anxiety disorder, unspecified; K58.1 Irritable bowel syndrome with constipation | CPT/HCPCS: 99395 ==